=== PATIENT | male | born 1995 | race African-American/Black ===

== ENCOUNTER 2017-02-01 12:30 | Emergency (ER) | payer SELFPAY ==
[~2017-02-01] VITALS: Ht 172.7 cm; Wt 70.8 kg
[2017-02-01 12:58] LABS: BILIRUBIN,URINE NEGATIVE (NEG); GLUCOSE,URINE NEGATIVE (NEG); NITRITE,URINE NEGATIVE (NEG); PROTEIN,URINE NEGATIVE (NEG-TRACE)
[2017-02-01 13:07] LABS: SQUAMOUS EPITHELIAL CELL,UR FEW /LPF
[2017-02-01 13:08] LABS: BACTERIA,URINE 0 /HPF (0-FEW); RBC,URINE OCC /HPF (0-2)
[2017-02-01] MEDS ORDERED: IV NORMAL SALINE 1000ML BAG 1,000 ML IV SCH (13:10)
[2017-02-01 13:27] LABS: BASO # 0.1 x10^3/uL (0.0-0.2); BASO % 0 % (0-3); EOS % 0 % (0-3); HEMATOCRIT 48.7 % (39.0-53.0); LYMPH # 1.3 x10^3/uL (1.0-4.8); LYMPH % 7 % (24-48); MEAN CORPUSCULAR HEMOGLOBIN 28 pg (25-35); MEAN CORPUSCULAR HGB CONC 33 g/dL (31-37); MEAN CORPUSCULAR VOLUME 85 fL (79-100); MONO % 3 % (0-9); NEUT % 90 % (31-73); PLATELET COUNT 239 x10^3/uL (140-400); RED BLOOD COUNT 5.77 x10^6/uL (4.30-5.70); RED CELL DISTRIBUTION WIDTH 14.8 % (11.5-14.5); WHITE BLOOD COUNT 19.5 x10^3/uL (4.0-11.0)
--- NOTE | 2017-02-01 13:37 | ED.ADGEN ---
Past Medical History Past Medical History: No Pertinent History Past Surgical History: No Surgical History Alcohol Use: Occasionally Drug Use: Marijuana Adult General Chief Complaint Chief Complaint: NAUSEA/VOMITING/DIARRHA HPI HPI Patient is a 21 year old man, with no significant past no history, who presents the emergency department with a complaint of nausea, vomiting, and diarrhea associated with fevers and chills that began around 11:30 last night.. Patient states that he began experiencing sharp and cramping abdominal pain all over his abdomen, has had 9 episodes of emesis, states initially food and fluid , states that he did have "red stuff", in the last 2 episodes, denies any history of hematemesis, any injuries, any similar symptoms previously. Patient states that he possibly had a sick contact in a cousin he was having vomiting yesterday. He states that he was drinking alcohol last night before this began, states "little bit". Denies any recent travel, any history of surgery, any rashes, swelling extremities, chest pain, shortness breath or other complaints. Review of Systems Review of Systems Constitutional: Denies fever or chills. [] Eyes: Denies change in visual acuity. [] HENT: Denies nasal congestion or sore throat. [] Respiratory: Denies cough or shortness of breath. [] Cardiovascular: Denies chest pain or edema. [] GI: Cramping, sharp abdominal pain throughout the abdomen, associated nausea, vomiting, diarrhea. No bloody stools, possible blood in one episode of emesis. : Denies dysuria. [] Musculoskeletal: Denies back pain or joint pain. [] Integument: Denies rash. [] Neurologic: Denies headache, focal weakness or sensory changes. [] Endocrine: Denies polyuria or polydipsia. [] Lymphatic: Denies swollen glands. [] Psychiatric: Denies depression or anxiety. [] Current Medications Current Medications Current Medications Medications (Trade) Dose Ordered Sig/Jose Miguel Start Time Stop Time Status Last Admin Dose Admin Haloperidol Lactate (Haldol) 5 mg 1X ONCE 02/01/17 15:30 02/01/17 15:31 DC 02/01/17 15:33 5 MG Info (Do NOT chart on this entry -- for MONITORING) 1 each PRN DAILY PRN 02/01/17 14:15 02/03/17 14:14 Iohexol (Omnipaque 300 Mg/ml) 75 ml 1X ONCE 02/01/17 14:15 02/01/17 14:16 DC 02/01/17 14:16 75 ML Multi-Ingredient Mouthwash/Gargle (Gi Cocktail Single Dose) 15 ml 1X ONCE 02/01/17 15:30 02/01/17 15:31 DC 02/01/17 15:33 15 ML Sodium Chloride 1,000 ml @ 1,000 mls/hr Q1H 02/01/17 13:10 02/01/17 14:09 DC 02/01/17 13:45 1,000 MLS/HR Allergies Allergies Allergies Coded Allergies Type Severity Reaction Last Updated Verified No Known Drug Allergies 02/01/17 No Physical Exam Physical Exam Constitutional: Well developed, well nourished, no acute distress, non-toxic appearance. [] HENT: Normocephalic, atraumatic, bilateral external ears normal, oropharynx moist, no oral exudates, nose normal. [] Eyes: PERRLA, EOMI, conjunctiva normal, no discharge. [] Neck: Normal range of motion, no tenderness, supple, no stridor. [] Cardiovascular:Heart rate regular rhythm, no murmur, S1, S2, rubs or gallops. [] Lungs & Thorax: Bilateral breath sounds clear to auscultation, no wheezing, rhonchi, rales. No chest wall tenderness or crepitus. [] Abdomen: Bowel sounds normal, soft, tenderness palpation in the epigastric and periumbilical region, mild voluntary guarding, no rebound or rigidity, no masses , no pulsatile masses. [] Skin: Warm, dry, no erythema, no rash. [] Back: No tenderness, no CVA tenderness. [] Extremities: No tenderness, no cyanosis, no clubbing, ROM intact, no edema. Negative Homans sign. [] Neurologic: Alert and oriented X 3, normal motor function, normal sensory function, no focal deficits noted. [] Psychologic: Affect normal, judgement normal, mood normal. [] Current Patient Data Vital Signs Vital Signs Date Time Temp Pulse Resp B/P (MAP) Pulse Ox O2 Delivery O2 Flow Rate FiO2 02/01/17 16:37 81 17 147/71 (96) 99 Room Air 02/01/17 12:30 97.8 97.8 Lab Values Laboratory Tests Test 02/01/17 12:38 02/01/17 13:20 Urine Collection Type Void Urine Color Yellow Urine Clarity Clear Urine pH 6.0 Urine Specific [place] 1.025 Urine Protein Negative mg/dL (NEG-TRACE) Urine Glucose (UA) Negative mg/dL (NEG) Urine Ketones (Stick) >=80 mg/dL (NEG) Urine Blood Negative (NEG) Urine Nitrite Negative (NEG) Urine Bilirubin Negative (NEG) Urine Urobilinogen Dipstick 1.0 mg/dL (0.2 mg/dL) Urine Leukocyte Esterase Negative (NEG) Urine RBC Occ /HPF (0-2) Urine WBC 1-4 /HPF (0-4) Urine Squamous Epithelial Cells Few /LPF Urine Bacteria 0 /HPF (0-FEW) Urine Mucus Marked /LPF Urine Opiates Screen Neg (NEG) Urine Methadone Screen Neg (NEG) Urine Barbiturates Neg (NEG) Urine Phencyclidine Screen Neg (NEG) Urine Amphetamine/Methamphetamine Neg (NEG) Urine Benzodiazepines Screen Neg (NEG) Urine Cocaine Screen Neg (NEG) Urine Cannabinoids Screen Pos (NEG) Urine Ethyl Alcohol Neg (NEG) White Blood Count 19.5 x10^3/uL (4.0-11.0) H Red Blood Count 5.77 x10^6/uL (4.30-5.70) H Hemoglobin 16.0 g/dL (13.0-17.5) Hematocrit 48.7 % (39.0-53.0) Mean Corpuscular Volume 85 fL (79-100) Mean Corpuscular Hemoglobin 28 pg (25-35) Mean Corpuscular Hemoglobin Concent 33 g/dL (31-37) Red Cell Distribution Width 14.8 % (11.5-14.5) H Platelet Count 239 x10^3/uL (140-400) Neutrophils (%) (Auto) 90 % (31-73) H Lymphocytes (%) (Auto) 7 % (24-48) L Monocytes (%) (Auto) 3 % (0-9) Eosinophils (%) (Auto) 0 % (0-3) Basophils (%) (Auto) 0 % (0-3) Neutrophils # (Auto) 17.5 x10^3uL (1.8-7.7) H Lymphocytes # (Auto) 1.3 x10^3/uL (1.0-4.8) Monocytes # (Auto) 0.6 x10^3/uL (0.0-1.1) Eosinophils # (Auto) 0.0 x10^3/uL (0.0-0.7) Basophils # (Auto) 0.1 x10^3/uL (0.0-0.2) Segmented Neutrophils % 85 % (35-66) H Band Neutrophils % 2 % (0-9) Lymphocytes % 8 % (24-48) L Monocytes % 5 % (0-10) Platelet Estimate Adequate (ADEQUATE) Sodium Level 140 mmol/L (136-145) Potassium Level 4.3 mmol/L (3.5-5.1) Chloride Level 100 mmol/L (98-107) Carbon Dioxide Level 25 mmol/L (21-32) Anion Gap 15 (6-14) H Blood Urea Nitrogen 16 mg/dL (8-26) Creatinine 1.3 mg/dL (0.7-1.3) Estimated GFR (Cockcroft-Gault) 84.3 BUN/Creatinine Ratio 12 (6-20) Glucose Level 95 mg/dL (70-99) Calcium Level 9.4 mg/dL (8.5-10.1) Total Bilirubin 0.7 mg/dL (0.2-1.0) Aspartate Amino Transferase (AST) 45 U/L (15-37) H Alanine Aminotransferase (ALT) 36 U/L (16-63) Alkaline Phosphatase 64 U/L (46-116) Total Protein 8.6 g/dL (6.4-8.2) H Albumin 4.7 g/dL (3.4-5.0) Albumin/Globulin Ratio 1.2 (1.0-1.7) Lipase 58 U/L (73-393) L Laboratory Tests 02/01/17 13:20 Laboratory Tests 02/01/17 13:20 EKG EKG ECG: Rhythm strip: Heart rate 96 bpm, sinus rhythm, no ectopy. As interpreted by me. [] Radiology/Procedures Radiology/Procedures [][facility] [address] [place] [address] IMAGING REPORT Signed PATIENT: TERENCE FORD ACCOUNT: [id number] : 1995 LOCATION: ER AGE: 21 SEX: M EXAM STATUS: REG ER ORD. PHYSICIAN: JORGE DODGE DO REASON: abd pain/n/v/d PROCEDURE: CT ABD PELV W/ IV CONTRST ONLY CT scan of the abdomen and pelvis with contrast 02/01/2017 Clinical history: Abdominal pain with nausea, vomiting and diarrhea since yesterday. Technique: After the intravenous administration of 75 cc of Omnipaque 300, contiguous, 5 mm axial sections were obtained through the abdomen and pelvis. One or more of the following individualized dose reduction techniques were utilized for this study: 1. Automated exposure control. 2. Adjustment of the mA and/or kV according to patient size. 3. Use of iterative reconstruction technique. Findings: Images through the lung bases are within normal limits. The liver, spleen, pancreas, adrenal glands and kidneys are within normal limits. The abdominal aorta tapers normally. The gallbladder is contracted. No free fluid or free air is abdomen. There is no evidence of bowel obstruction. The appendix is well visualized and is within normal limits. Images through the pelvis demonstrate the urinary bladder distended with urine. Calcifications are seen within the pelvis consistent with phleboliths. No free fluid is seen. Minimal S shaped curvature of the thoracolumbar spine is seen. Impression: No acute abnormality is seen. DICTATED and SIGNED BY: SRINI ROLLE MD DATE: 02/01/17 1432 CC: JORGE DODGE DO; NON,STAFF ~ Course & Med Decision Making Course & Med Decision Making Pertinent Labs and Imaging studies reviewed. (See chart for details) Patient with potential positive sick contacts as stated. Patient with vital signs within normal limits, agreeable to receiving IV fluids, pain medication, antiemetics in the ED, with imaging of the abdomen from elucidate his symptoms, with a leukocytosis of 19.5. No bandemia, patient is afebrile without antipyretics. Imaging of the abdomen does not reveal any concerning findings. On reevaluation, patient is feeling much better, has had no further emesis or episodes of diarrhea since arrival in the ED. Noted to be positive for marijuana in his urine, he does admit to daily marijuana use, advised this could be contributing to his symptoms. Patient voices understanding, states he is rated go home at this time, given prescription for Bentyl, Zofran, clear and detailed return instructions, precautions, dietary instructions, with which he voiced understanding and agreement. Patient discharged home with plan as above. Lisyon Disclaimer Becki Disclaimer This electronic medical record was generated, in whole or in part, using a voice recognition dictation system. Departure Impression: Primary Impression: Nausea & vomiting Additional Impression: Abdominal pain Disposition: HOME, SELF-CARE Condition: IMPROVED Scripts Dicyclomine Hcl (BENTYL) 10 Mg Capsule 10 MG PO QID Y for abdominal pain, #12 TAB Prov: JORGE DODGE DO 02/01/17 Ondansetron Hcl (ZOFRAN) 4 Mg Tablet 1 TAB PO Q8HRS Y for NAUSEA, #12 TAB Prov: JORGE DODGE DO 02/01/17 Problem Qualifiers JORGE DODGE DO Feb 01, 2017 13:37
[2017-02-01 13:38] LABS: CALCIUM 9.4 mg/dL (8.5-10.1); CREATININE 1.3 mg/dL (0.7-1.3); GFR 84.3; POTASSIUM 4.3 mmol/L (3.5-5.1)
[2017-02-01 13:45] LABS: ALBUMIN 4.7 g/dL (3.4-5.0); ALBUMIN/GLOBULIN RATIO 1.2 (1.0-1.7); TOTAL BILIRUBIN 0.7 mg/dL (0.2-1.0); TOTAL PROTEIN 8.6 g/dL (6.4-8.2)
[2017-02-01 14:12] LABS: PLT ESTIMATE ADEQUATE (ADEQUATE)
[2017-02-01] MEDS ORDERED: CONTRAST GIVEN MC PRN (14:15)
[2017-02-01] MEDS ORDERED: IOHEXOL 300 MG/ML 75 ML VIAL IV ONE (14:15)
--- NOTE | 2017-02-01 14:38 | RAD ---
CT scan of the abdomen and pelvis with contrast 02/01/2017 Clinical history: Abdominal pain with nausea, vomiting and diarrhea since yesterday. Technique: After the intravenous administration of 75 cc of Omnipaque 300, contiguous, 5 mm axial sections were obtained through the abdomen and pelvis. One or more of the following individualized dose reduction techniques were utilized for this study: 1. Automated exposure control. 2. Adjustment of the mA and/or kV according to patient size. 3. Use of iterative reconstruction technique. Findings: Images through the lung bases are within normal limits. The liver, spleen, pancreas, adrenal glands and kidneys are within normal limits. The abdominal aorta tapers normally. The gallbladder is contracted. No free fluid or free air is abdomen. There is no evidence of bowel obstruction. The appendix is well visualized and is within normal limits. Images through the pelvis demonstrate the urinary bladder distended with urine. Calcifications are seen within the pelvis consistent with phleboliths. No free fluid is seen. Minimal S shaped curvature of the thoracolumbar spine is seen. Impression: No acute abnormality is seen.
[2017-02-01 14:53] LABS: BARBITURATES NEG (NEG); BENZODIAZEPINES NEG (NEG); CANNABINOIDS POS (NEG); COCAINE NEG (NEG); METHADONE NEG (NEG); OPIATES NEG (NEG); PHENCYCLIDINE NEG (NEG)
[2017-02-01] MEDS ORDERED: HALOPERIDOL LACTATE 5 MG/ML VIAL. IVP ONE (15:30)
[2017-02-01] MEDS ORDERED: LIDO:MAALOX:DONNATAL 1:1:1 15 ML SINGLE DOSE SWSW ONE (15:30)
[2017-02-01 16:37] VITALS: BP 147/71
[2017-02-01] MEDS ORDERED: DICY10CA53 PO (16:53)
[2017-02-01] MEDS ORDERED: ONDA4TAB7 PO (16:53)
== END 2017-02-01 16:58 | disposition home or self-care (01) ==
LOC: ER 12:30
DX: R10.13 Epigastric pain (principal); R10.33 Periumbilical pain; R11.2 Nausea with vomiting, unspecified; R19.7 Diarrhea, unspecified; R50.9 Fever, unspecified
CPT/HCPCS: 36415; 74177; 80053; 80307; 81001; 83690; 85007; 85025; 96361; 96374; 99285; J1630; J7030; Q9967; G0479

== ENCOUNTER 2017-06-12 13:48 | Emergency (ER) | payer SELFPAY ==
[~2017-06-12] VITALS: Ht 172.7 cm; Wt 70.8 kg
[~2017-06-12 13:48] MED LIST: DICY10CA53 PO; ONDA4TAB7 PO
[2017-06-12] MEDS ORDERED: IV NORMAL SALINE 1000ML BAG 1,000 ML IV SCH (14:39)
[2017-06-12] MEDS ORDERED: FAMOTIDINE 20 MG/2 ML VIAL IVP ONE (14:45)
[2017-06-12] MEDS ORDERED: LIDO:MAALOX:DONNATAL 1:1:1 15 ML SINGLE DOSE SWSW ONE (14:45)
[2017-06-12] MEDS ORDERED: fentaNYL PF VIAL 100 MCG/2 ML VIAL IV PRN (14:45)
[2017-06-12] MEDS ORDERED: ONDANSETRON PF 4 MG/2 ML VIAL. IV ONE (14:45)
--- NOTE | 2017-06-12 15:11 | PHYS DOC ---
Past Medical History Past Medical History: No Pertinent History Past Surgical History: No Surgical History Alcohol Use: Occasionally Drug Use: Marijuana Adult General Chief Complaint Chief Complaint: NAUSEA/VOMITING/DIARRHA HPI HPI Patient is a 21 year old male who presents with complaint of nausea, vomiting, and abdominal pain. Patient states that his symptoms started 3 days ago though he does state that he has had symptoms off and on over the past 3 months. Patient states that the pain is in the middle of his abdomen and describes it as cramping. Patient rates pain as 9 out of 10 on my evaluation. Patient has had several episodes of nausea and vomiting as well as loose stools. Patient states she's had subjective fevers at home. Patient has not taken any medications to help with his symptoms. Patient denies any known health problems. Review of Systems Review of Systems Constitutional: Subjective fever[] Eyes: Denies change in visual acuity, redness, or eye pain [] HENT: Denies nasal congestion or sore throat [] Respiratory: Denies cough or shortness of breath [] Cardiovascular: Denies chest pain or edema[] GI: Abdominal pain, nausea, vomiting, diarrhea[] : Denies dysuria or hematuria [] Musculoskeletal: Denies back pain or joint pain [] Integument: Denies rash or skin lesions [] Neurologic: Denies headache, focal weakness or sensory changes [] All other systems were reviewed and found to be within normal limits, except as documented in this note. Current Medications Current Medications Current Medications Medications (Trade) Dose Ordered Sig/Jose Miguel Start Time Stop Time Status Last Admin Dose Admin Famotidine (Pepcid Vial) 20 mg 1X ONCE 06/12/17 14:45 06/12/17 14:46 DC 06/12/17 15:03 20 MG Fentanyl Citrate (Fentanyl 2ml Vial) 50 mcg PRN Q15MIN PRN 06/12/17 14:45 06/13/17 14:44 06/12/17 15:04 50 MCG Multi-Ingredient Mouthwash/Gargle (Gi Cocktail Single Dose) 15 ml 1X ONCE 06/12/17 14:45 06/12/17 14:46 DC 06/12/17 15:02 15 ML Ondansetron HCl (Zofran) 4 mg 1X ONCE 06/12/17 14:45 06/12/17 14:46 DC 06/12/17 15:03 4 MG Sodium Chloride 1,000 ml @ 1,000 mls/hr Q1H 06/12/17 14:39 06/12/17 15:38 DC 06/12/17 15:03 1,000 MLS/HR Allergies Allergies Allergies Coded Allergies Type Severity Reaction Last Updated Verified No Known Drug Allergies 02/01/17 No Physical Exam Physical Exam Constitutional: Alert, afebrile, appears mild/moderate discomfort. [] HENT: Normocephalic, atraumatic, bilateral external ears normal, oropharynx moist, no oral exudates, nose normal. [] Eyes: PERRLA, EOMI, conjunctiva normal, no discharge. [] Neck: Normal range of motion, no tenderness, supple, no stridor. [] Cardiovascular:Heart rate regular rhythm, no murmur [] Lungs & Thorax: Bilateral breath sounds clear to auscultation [] Abdomen: Bowel sounds normal, soft, no tenderness to palpation with no guarding or rebound tenderness, no masses, no pulsatile masses. [] Skin: Warm, dry, no erythema, no rash. [] Back: No tenderness, no CVA tenderness. [] Extremities: No tenderness, no cyanosis, no clubbing, ROM intact, no edema. [] Neurologic: Alert and oriented X 3, normal motor function, normal sensory function, no focal deficits noted. [] Current Patient Data Vital Signs Vital Signs Date Time Temp Pulse Resp B/P (MAP) Pulse Ox O2 Delivery O2 Flow Rate FiO2 06/12/17 14:20 97.5 76 18 162/92 (115) 99 Room Air 97.5 Lab Values Laboratory Tests Test 06/12/17 14:55 06/12/17 16:30 White Blood Count 8.7 x10^3/uL (4.0-11.0) Red Blood Count 5.70 x10^6/uL (4.30-5.70) Hemoglobin 15.5 g/dL (13.0-17.5) Hematocrit 47.5 % (39.0-53.0) Mean Corpuscular Volume 83 fL (79-100) Mean Corpuscular Hemoglobin 27 pg (25-35) Mean Corpuscular Hemoglobin Concent 33 g/dL (31-37) Red Cell Distribution Width 14.3 % (11.5-14.5) Platelet Count 262 x10^3/uL (140-400) Neutrophils (%) (Auto) 68 % (31-73) Lymphocytes (%) (Auto) 25 % (24-48) Monocytes (%) (Auto) 6 % (0-9) Eosinophils (%) (Auto) 1 % (0-3) Basophils (%) (Auto) 1 % (0-3) Neutrophils # (Auto) 5.9 x10^3uL (1.8-7.7) Lymphocytes # (Auto) 2.2 x10^3/uL (1.0-4.8) Monocytes # (Auto) 0.5 x10^3/uL (0.0-1.1) Eosinophils # (Auto) 0.1 x10^3/uL (0.0-0.7) Basophils # (Auto) 0.1 x10^3/uL (0.0-0.2) Sodium Level 140 mmol/L (136-145) Potassium Level 3.8 mmol/L (3.5-5.1) Chloride Level 102 mmol/L (98-107) Carbon Dioxide Level 25 mmol/L (21-32) Anion Gap 13 (6-14) Blood Urea Nitrogen 10 mg/dL (8-26) Creatinine 1.1 mg/dL (0.7-1.3) Estimated GFR (Cockcroft-Gault) 102.2 BUN/Creatinine Ratio 9 (6-20) Glucose Level 93 mg/dL (70-99) Calcium Level 9.9 mg/dL (8.5-10.1) Total Bilirubin 0.8 mg/dL (0.2-1.0) Aspartate Amino Transferase (AST) 20 U/L (15-37) Alanine Aminotransferase (ALT) 17 U/L (16-63) Alkaline Phosphatase 67 U/L (46-116) Total Protein 7.9 g/dL (6.4-8.2) Albumin 4.5 g/dL (3.4-5.0) Albumin/Globulin Ratio 1.3 (1.0-1.7) Lipase 64 U/L (73-393) L Urine Color Yellow Urine Clarity Clear Urine pH 8.5 Urine Specific [place] 1.020 Urine Protein Negative mg/dL (NEG-TRACE) Urine Glucose (UA) Negative mg/dL (NEG) Urine Ketones (Stick) 40 mg/dL (NEG) Urine Blood Negative (NEG) Urine Nitrite Negative (NEG) Urine Bilirubin Negative (NEG) Urine Urobilinogen Dipstick 1.0 mg/dL (0.2 mg/dL) Urine Leukocyte Esterase Negative (NEG) Urine RBC 0 /HPF (0-2) Urine WBC Occ /HPF (0-4) Urine Squamous Epithelial Cells Occ /LPF Urine Bacteria 0 /HPF (0-FEW) Urine Mucus Slight /LPF Laboratory Tests 06/12/17 14:55 Laboratory Tests 06/12/17 14:55 EKG EKG Not performed[] Radiology/Procedures Radiology/Procedures Not performed[] Course & Med Decision Making Course & Med Decision Making Pertinent Labs and Imaging studies reviewed. (See chart for details) Patient is given IV fluids, Pepcid, Zofran, and fentanyl in the emergency department. On reevaluation, patient states his symptoms have improved at this time. Lab work is unremarkable. The patient's symptoms do not appear to be acutely life-threatening or surgical. The patient will be discharged with prescriptions for Bentyl, Pepcid, and Zofran for outpatient treatment. Patient was referred to Dr. Stoll given the chronicity of symptoms and recommended that he schedule appointment in the next 1-2 weeks for follow-up. Advised return emergency department for any worsening symptoms. Patient voiced understanding and in agreement with treatment plan. Dragon Disclaimer Dragon Disclaimer This electronic medical record was generated, in whole or in part, using a voice recognition dictation system. Departure Departure Impression: Primary Impression: Abdominal pain Additional Impressions: Nausea & vomiting Diarrhea Disposition: 01 HOME, SELF-CARE Condition: IMPROVED Referrals: NON,STAFF (PCP) Patient Instructions: Abdominal Pain (Nonspecific), Diarrhea, Nausea and Vomiting Additional Instructions: Follow-up with Dr. Stoll of gastroenterology in 1-2 weeks for follow-up of your recurrent abdominal symptoms. Return to the emergency department for any worsening symptoms. Scripts Dicyclomine Hcl (BENTYL) 10 Mg Capsule 1 CAP PO TID, #90 CAP 0 Refills Prov: ROLA SANTACRUZ MD 06/12/17 Famotidine (PEPCID) 20 Mg Tablet 20 MG PO BID, #30 TAB Prov: ROLA SANTACRUZ MD 06/12/17 Ondansetron (ZOFRAN ODT) 4 Mg Tab.rapdis 1 TAB SL Q8HRS Y for NAUSEA/VOMITING, #15 TAB Prov: ROLA SANTACRUZ MD 06/12/17 Problem Qualifiers Primary Impression: Abdominal pain Abdominal location: periumbilical Qualified Codes: R10.33 - Periumbilical pain Additional Impressions: Nausea & vomiting Vomiting type: unspecified Vomiting Intractability: unspecified Qualified Codes: R11.2 - Nausea with vomiting, unspecified Diarrhea Diarrhea type: presumed infectious Qualified Codes: A09 - Infectious gastroenteritis and colitis, unspecified ROLA SANTACRUZ MD Jun 12, 2017 15:11
[2017-06-12 15:12] LABS: BASO # 0.1 x10^3/uL (0.0-0.2); BASO % 1 % (0-3); EOS % 1 % (0-3); HEMATOCRIT 47.5 % (39.0-53.0); HEMOGLOBIN 15.5 g/dL (13.0-17.5); LYMPH # 2.2 x10^3/uL (1.0-4.8); LYMPH % 25 % (24-48); MEAN CORPUSCULAR HEMOGLOBIN 27 pg (25-35); MEAN CORPUSCULAR HGB CONC 33 g/dL (31-37); MEAN CORPUSCULAR VOLUME 83 fL (79-100); MONO % 6 % (0-9); NEUT % 68 % (31-73); PLATELET COUNT 262 x10^3/uL (140-400); RED CELL DISTRIBUTION WIDTH 14.3 % (11.5-14.5); WHITE BLOOD COUNT 8.7 x10^3/uL (4.0-11.0)
[2017-06-12 15:18] LABS: CALCIUM 9.9 mg/dL (8.5-10.1); CREATININE 1.1 mg/dL (0.7-1.3); GFR 102.2; POTASSIUM 3.8 mmol/L (3.5-5.1)
[2017-06-12 15:24] LABS: ALBUMIN 4.5 g/dL (3.4-5.0); ALBUMIN/GLOBULIN RATIO 1.3 (1.0-1.7); TOTAL BILIRUBIN 0.8 mg/dL (0.2-1.0); TOTAL PROTEIN 7.9 g/dL (6.4-8.2)
[2017-06-12 16:37] LABS: BILIRUBIN,URINE NEGATIVE (NEG); GLUCOSE,URINE NEGATIVE (NEG); NITRITE,URINE NEGATIVE (NEG); PH,URINE 8.5; PROTEIN,URINE NEGATIVE (NEG-TRACE)
[2017-06-12 16:55] LABS: BACTERIA,URINE 0 /HPF (0-FEW); RBC,URINE 0 /HPF (0-2); SQUAMOUS EPITHELIAL CELL,UR OCC /LPF; WBC,URINE OCC /HPF (0-4)
[2017-06-12 18:00] VITALS: BP 121/80
[2017-06-12] MEDS ORDERED: FAMO-63 PO (18:01)
[2017-06-12] MEDS ORDERED: ONDA4TAB10 SL (18:01)
[2017-06-12] MEDS ORDERED: DICY10CA53 PO (18:01)
== END 2017-06-12 18:17 | disposition home or self-care (01) ==
LOC: ER 13:48
DX: A09 Infectious gastroenteritis and colitis, unspecified (principal); F12.10 Cannabis abuse, uncomplicated
CPT/HCPCS: 36415; 80053; 81001; 83690; 85025; 96361; 96374; 96375; 99284; J2405; J3010; J7030; S0028

== ENCOUNTER 2017-06-18 11:23 | Emergency (ER) | payer SELFPAY ==
[2017-06-18] MEDS: IV NORMAL SALINE 1000ML BAG 1,000 ML IV (12:13)
[2017-06-18] MEDS: ONDANSETRON PF 4 MG/2 ML VIAL. IV (12:14)
[2017-06-18] MEDS: fentaNYL PF VIAL 100 MCG/2 ML VIAL IV (12:14)
[2017-06-18 12:35] LABS: BASO % 0 % (0-3); EOS % 0 % (0-3); HEMATOCRIT 45.5 % (39.0-53.0); HEMOGLOBIN 14.9 g/dL (13.0-17.5); LYMPH # 0.4 x10^3/uL (1.0-4.8); LYMPH % 4 % (24-48); MEAN CORPUSCULAR HEMOGLOBIN 27 pg (25-35); MEAN CORPUSCULAR HGB CONC 33 g/dL (31-37); MEAN CORPUSCULAR VOLUME 84 fL (79-100); MONO % 6 % (0-9); NEUT % 91 % (31-73); PLATELET COUNT 207 x10^3/uL (140-400); RED BLOOD COUNT 5.44 x10^6/uL (4.30-5.70)
[2017-06-18 12:37] LABS: ADD MAN DIFF? YES
[2017-06-18 12:55] LABS: ANION GAP 13 (6-14); BLOOD UREA NITROGEN 17 mg/dL (8-26); BUN/CREATININE RATIO 14 (6-20); CALCIUM 8.5 mg/dL (8.5-10.1); CARBON DIOXIDE 24 mmol/L (21-32); CHLORIDE 103 mmol/L (98-107); CREATININE 1.2 mg/dL (0.7-1.3); GFR 92.5; GLUCOSE 115 mg/dL (70-99); POTASSIUM 4.4 mmol/L (3.5-5.1); SODIUM 140 mmol/L (136-145)
[2017-06-18 13:00] LABS: ALBUMIN/GLOBULIN RATIO 1.1 (1.0-1.7); ALK PHOS 64 U/L (46-116); ALT (SGPT) 19 U/L (16-63); AST (SGOT) 18 U/L (15-37); TOTAL BILIRUBIN 0.4 mg/dL (0.2-1.0); TOTAL PROTEIN 7.8 g/dL (6.4-8.2)
[2017-06-18 13:05] LABS: OBC FLU VALID
[2017-06-18 13:43] LABS: % BASOS 1 % (0-3); PLT ESTIMATE ADEQUATE (ADEQUATE)
[2017-06-18] MEDS ORDERED: CONTRAST GIVEN MC (13:45)
[2017-06-18] MEDS: IOHEXOL 300 MG/ML 100ML VIAL. IV (13:51)
== END 2017-06-18 14:40 | disposition home or self-care (01) ==
LOC: ER 11:23
DX: K52.9 Noninfective gastroenteritis and colitis, unspecified (principal); F12.10 Cannabis abuse, uncomplicated
CPT/HCPCS: 36415; 74177; 80053; 83690; 85007; 85025; 87804; 87804-59; 96361; 96374; 96375; 99285-25; J2405; J3010; J7030; Q9967

== ENCOUNTER 2017-11-14 19:41 | Emergency (ER) | payer SELFPAY ==
[2017-11-14] MEDS: ONDANSETRON PF 4 MG/2 ML VIAL. IV (20:23)
[2017-11-14] MEDS: IV NORMAL SALINE 1000ML BAG 1,000 ML IV (20:23)
== END 2017-11-14 22:15 | disposition home or self-care (01) ==
LOC: ER 22:15
DX: R11.2 Nausea with vomiting, unspecified (principal); F12.10 Cannabis abuse, uncomplicated
CPT/HCPCS: 96361; 96374; 99284; J2405; J7030

== ENCOUNTER 2018-01-06 22:52 | Emergency (ER) | payer SELFPAY ==
[2018-01-06] MEDS ORDERED: DEXTROSE 50% 25 GM / 50ML DISP.SYRIN. IV (23:00)
[2018-01-06] MEDS: DEXTROSE 50% 25 GM / 50ML DISP.SYRIN. IV (23:08)
[2018-01-06] MEDS: IV NORMAL SALINE 1000ML BAG 1,000 ML IV (23:09)
[2018-01-06 23:31] LABS: ADD MAN DIFF? NO
[2018-01-06 23:34] LABS: BASO % 1 % (0-3); EOS # 0.1 x10^3/uL (0.0-0.7); EOS % 1 % (0-3); HEMATOCRIT 40.3 % (39.0-53.0); HEMOGLOBIN 13.6 g/dL (13.0-17.5); LYMPH # 1.2 x10^3/uL (1.0-4.8); LYMPH % 23 % (24-48); MEAN CORPUSCULAR HEMOGLOBIN 28 pg (25-35); MEAN CORPUSCULAR HGB CONC 34 g/dL (31-37); MEAN CORPUSCULAR VOLUME 84 fL (79-100); MONO # 0.3 x10^3/uL (0.0-1.1); MONO % 5 % (0-9); NEUT # 3.5 x10^3uL (1.8-7.7); NEUT % 70 % (31-73); PLATELET COUNT 210 x10^3/uL (140-400); RED BLOOD COUNT 4.82 x10^6/uL (4.30-5.70); RED CELL DISTRIBUTION WIDTH 14.6 % (11.5-14.5); WHITE BLOOD COUNT 5.1 x10^3/uL (4.0-11.0)
[2018-01-06 23:46] LABS: ANION GAP 13 (6-14); BLOOD UREA NITROGEN 12 mg/dL (8-26); BUN/CREATININE RATIO 10 (6-20); CALCIUM 8.1 mg/dL (8.5-10.1); CARBON DIOXIDE 22 mmol/L (21-32); CHLORIDE 101 mmol/L (98-107); CREATININE 1.2 mg/dL (0.7-1.3); GFR 91.6; GLUCOSE 261 mg/dL (70-99); POTASSIUM 3.5 mmol/L (3.5-5.1); SODIUM 136 mmol/L (136-145)
[2018-01-06 23:47] LABS: ETHANOL 92 mg/dL (0-10)
[2018-01-06 23:52] LABS: ALBUMIN 3.6 g/dL (3.4-5.0); ALBUMIN/GLOBULIN RATIO 1.2 (1.0-1.7); ALK PHOS 56 U/L (46-116); ALT (SGPT) 14 U/L (16-63); AST (SGOT) 13 U/L (15-37); TOTAL BILIRUBIN 0.5 mg/dL (0.2-1.0); TOTAL PROTEIN 6.5 g/dL (6.4-8.2)
== END 2018-01-07 03:00 | disposition home or self-care (01) ==
LOC: ER 22:52
DX: F10.129 Alcohol abuse with intoxication, unspecified (principal); R06.4 Hyperventilation; F41.9 Anxiety disorder, unspecified; F17.210 Nicotine dependence, cigarettes, uncomplicated
CPT/HCPCS: 36415; 80053; 85025; 96374; 96375; 99284; G0480; J2060; J7030; J7042

== ENCOUNTER 2018-02-08 19:01 | Emergency (ER) | payer SELFPAY ==
[~2018-02-08] VITALS: Ht 172.7 cm; Wt 61.2 kg
[~2018-02-08 19:01] MED LIST changes: +FAMO-63 PO; +ONDA4TAB10 SL
[2018-02-08] MEDS ORDERED: DICYCLOMINE HCL 10 MG CAPSULE PO ONE (20:15)
[2018-02-08] MEDS ORDERED: IV NORMAL SALINE 1000ML BAG 1,000 ML IV ONE (20:15)
[2018-02-08] MEDS ORDERED: ONDANSETRON PF 4 MG/2 ML VIAL. IV ONE (20:15)
[2018-02-08] MEDS ORDERED: PANTOPRAZOLE IV PUSH 40 MG VIAL. IVP ONE (20:15)
[2018-02-08 20:24] LABS: BILIRUBIN,URINE NEGATIVE (NEG); CLARITY,URINE CLEAR; COLOR,URINE YELLOW; NITRITE,URINE NEGATIVE (NEG); PH,URINE 6.5; PROTEIN,URINE 30 mg/dL (NEG-TRACE); UROBILINOGEN,URINE 0.2 mg/dL (0.2 mg/dL)
--- NOTE | 2018-02-08 20:25 | PHYS DOC ---
Past Medical History Past Medical History: No Pertinent History Past Surgical History: No Surgical History Alcohol Use: Occasionally Drug Use: Marijuana Adult General Chief Complaint Chief Complaint: ABDOMINAL PAIN HPI HPI Patient is a 22 year old female with nausea with the medical history who presents today complaining of 10 out of 10 generalized abdominal pain with nausea and vomiting. Patient states symptoms began 2 weeks ago after he had [employer]. Patient states symptoms had subsided. He states he had [employer] yesterday again, he states symptoms began. Patient denies taking anything for his symptoms. Denies any fever. Denies any hematemesis or melena. He is actively vomiting on arrival to the ED. He states he has been seen in the ED multiple times for similar symptoms. Review of Systems Review of Systems Constitutional: Denies fever or chills [] Eyes: Denies change in visual acuity, redness, or eye pain [] HENT: Denies nasal congestion or sore throat [] Respiratory: Denies cough or shortness of breath [] Cardiovascular: No additional information not addressed in HPI [] GI: Reports generalized abdominal pain, nausea vomiting and diarrhea : Denies dysuria or hematuria [] Musculoskeletal: Denies back pain or joint pain [] Integument: Denies rash or skin lesions [] Neurologic: Denies headache, focal weakness or sensory changes [] All other systems were reviewed and found to be within normal limits, except as documented in this note. Current Medications Current Medications Current Medications Medications (Trade) Dose Ordered Sig/Jose Miguel Start Time Stop Time Status Last Admin Dose Admin Dicyclomine HCl (Bentyl) 20 mg 1X ONCE 02/08/18 20:15 02/08/18 20:16 DC 02/08/18 22:16 20 MG Haloperidol Lactate (Haldol Inj) 5 mg 1X ONCE 02/08/18 21:00 02/08/18 21:01 DC 02/08/18 21:25 5 MG Info (CONTRAST GIVEN -- Rx MONITORING) 1 each PRN DAILY PRN 02/08/18 20:30 02/10/18 20:29 Iohexol (Omnipaque 300 Mg/ml) 75 ml 1X ONCE 02/08/18 20:30 02/08/18 20:31 DC 02/08/18 20:30 75 ML Ondansetron HCl (Zofran) 4 mg 1X ONCE 02/08/18 20:15 02/08/18 20:16 DC 02/08/18 22:14 4 MG Pantoprazole Sodium (PROTONIX VIAL for IV PUSH) 40 mg 1X ONCE 02/08/18 20:15 02/08/18 20:16 DC 02/08/18 22:15 40 MG Sodium Chloride 1,000 ml @ 1,000 mls/hr 1X ONCE 02/08/18 20:15 02/08/18 21:14 DC 02/08/18 22:15 1,000 MLS/HR Allergies Allergies Allergies Coded Allergies Type Severity Reaction Last Updated Verified No Known Drug Allergies 02/01/17 No Physical Exam Physical Exam Constitutional: Well developed, well nourished, no acute distress, non-toxic appearance. [] HENT: Normocephalic, atraumatic, bilateral external ears normal, oropharynx moist, no oral exudates, nose normal. [] Eyes: PERRLA, EOMI, conjunctiva normal, no discharge. [] Neck: Normal range of motion, no tenderness, supple, no stridor. [] Cardiovascular:Heart rate regular rhythm, no murmur [] Lungs & Thorax: Bilateral breath sounds clear to auscultation [] Abdomen: Flat abdomen. Bowel sounds normal, soft, diffuse tenderness throughout the abdomen, no point tenderness to the right lower quadrant or right upper quadrant specifically, negative psoas sign, negative obturator sign, no guarding no masses, no pulsatile masses. Patient is actively vomiting. Skin: Warm, dry, no erythema, no rash. [] Back: No tenderness, no CVA tenderness. [] Extremities: No tenderness, no cyanosis, no clubbing, ROM intact, no edema. [] Neurologic: Alert and oriented X 3, normal motor function, normal sensory function, no focal deficits noted. [] Psychologic: Affect normal, judgement normal, mood normal. [] Current Patient Data Vital Signs Vital Signs Date Time Temp Pulse Resp B/P (MAP) Pulse Ox O2 Delivery O2 Flow Rate FiO2 02/08/18 22:06 71 151/92 (111) 100 Room Air 02/08/18 19:35 97.0 16 97.0 Lab Values Laboratory Tests Test 02/08/18 19:30 02/08/18 20:45 Urine Collection Type Unknown Urine Color Yellow Urine Clarity Clear Urine pH 6.5 Urine Specific [place] 1.020 Urine Protein 30 mg/dL (NEG-TRACE) Urine Glucose (UA) Negative mg/dL (NEG) Urine Ketones (Stick) 40 mg/dL (NEG) Urine Blood Negative (NEG) Urine Nitrite Negative (NEG) Urine Bilirubin Negative (NEG) Urine Urobilinogen Dipstick 0.2 mg/dL (0.2 mg/dL) Urine Leukocyte Esterase Negative (NEG) Urine RBC Occ /HPF (0-2) Urine WBC 1-4 /HPF (0-4) Urine Squamous Epithelial Cells Few /LPF Urine Bacteria Few /HPF (0-FEW) Urine Hyaline Casts Few /HPF Urine Mucus Mod /LPF Urine Opiates Screen Neg (NEG) Urine Methadone Screen Neg (NEG) Urine Barbiturates Neg (NEG) Urine Phencyclidine Screen Neg (NEG) Urine Amphetamine/Methamphetamine Neg (NEG) Urine Benzodiazepines Screen Neg (NEG) Urine Cocaine Screen Neg (NEG) Urine Cannabinoids Screen Pos (NEG) Urine Ethyl Alcohol Neg (NEG) White Blood Count 11.0 x10^3/uL (4.0-11.0) Red Blood Count 5.81 x10^6/uL (4.30-5.70) H Hemoglobin 16.6 g/dL (13.0-17.5) Hematocrit 47.9 % (39.0-53.0) Mean Corpuscular Volume 82 fL (79-100) Mean Corpuscular Hemoglobin 29 pg (25-35) Mean Corpuscular Hemoglobin Concent 35 g/dL (31-37) Red Cell Distribution Width 14.5 % (11.5-14.5) Platelet Count 232 x10^3/uL (140-400) Neutrophils (%) (Auto) 79 % (31-73) H Lymphocytes (%) (Auto) 13 % (24-48) L Monocytes (%) (Auto) 7 % (0-9) Eosinophils (%) (Auto) 1 % (0-3) Basophils (%) (Auto) 1 % (0-3) Neutrophils # (Auto) 8.7 x10^3uL (1.8-7.7) H Lymphocytes # (Auto) 1.5 x10^3/uL (1.0-4.8) Monocytes # (Auto) 0.7 x10^3/uL (0.0-1.1) Eosinophils # (Auto) 0.1 x10^3/uL (0.0-0.7) Basophils # (Auto) 0.1 x10^3/uL (0.0-0.2) Sodium Level 138 mmol/L (136-145) Potassium Level 3.4 mmol/L (3.5-5.1) L Chloride Level 103 mmol/L (98-107) Carbon Dioxide Level 22 mmol/L (21-32) Anion Gap 13 (6-14) Blood Urea Nitrogen 16 mg/dL (8-26) Creatinine 1.7 mg/dL (0.7-1.3) H Estimated GFR (Cockcroft-Gault) 61.3 BUN/Creatinine Ratio 9 (6-20) Glucose Level 102 mg/dL (70-99) H Calcium Level 10.2 mg/dL (8.5-10.1) H Total Bilirubin 0.5 mg/dL (0.2-1.0) Aspartate Amino Transferase (AST) 28 U/L (15-37) Alanine Aminotransferase (ALT) 23 U/L (16-63) Alkaline Phosphatase 78 U/L (46-116) Total Protein 9.0 g/dL (6.4-8.2) H Albumin 5.0 g/dL (3.4-5.0) Albumin/Globulin Ratio 1.3 (1.0-1.7) Lipase 88 U/L (73-393) Ethyl Alcohol Level < 10 mg/dL (0-10) Laboratory Tests 02/08/18 20:45 Laboratory Tests 02/08/18 20:45 EKG EKG [] Radiology/Procedures Radiology/Procedures []PROCEDURE: CT ABD PELV W/ IV CONTRST ONLY PQRS Compliance statement: One or more of the following individualized dose reduction techniques were utilized for this examination: 1. Automated exposure control. 2. Adjustment of the mA and/or kV according to patient size. 3. Use of iterative reconstruction technique. Indication:abd pain with nausea and vomiting TECHNIQUE: CT abdomen and pelvis with IV contrast with multiplanar reformats. COMPARISON: 11/16/2016 FINDINGS: Heart is normal in size. No pericardial or pleural effusion. Clear lung bases. Liver, spleen, gallbladder, pancreas, adrenals and kidneys are within normal limits. No free pelvic fluid or ascites. No retroperitoneal or pelvic adenopathy. No bowel obstruction. Normal appendix. Urinary bladder demonstrates no radiopaque stones. No pneumoperitoneum. Prominent gastric rugae are seen. No suspicious bony lesion. IMPRESSION: Questionable thickening of the gastric rugae. Clinically correlate for gastritis. Electronically signed by: Piero Ramirez DO (02/08/2018 9:49 PM) [facility] DICTATED and SIGNED BY: PIERO RAMIREZ DO DATE: 02/08/182141 Course & Med Decision Making Course & Med Decision Making Pertinent Labs and Imaging studies reviewed. (See chart for details) This is a 22-year-old male patient presenting to the ED today with nausea, vomiting, diarrhea, generalized abdominal pain that began initially 2 weeks ago after eating at [employer] chicken then symptoms have subsided, he states symptoms began yesterday again after eating at [employer]. He is actively vomiting loudly in the ED. Patient was given IV fluids, nausea medicine, Protonix, and Haldol, Labs are negative for any acute findings. Urine drug screen was noted for marijuana use. CT of the abdomen and pelvic was noted for gastritis. Patient was discharged with Zofran and famotidine. Instructed to avoid using marijuana. Instructed to follow-up with the PCP or the provided GI doctor in the next 3 days. Dragon Disclaimer Dragon Disclaimer This electronic medical record was generated, in whole or in part, using a voice recognition dictation system. Departure Departure Impression: Primary Impression: Gastritis Additional Impression: Marijuana use Disposition: 01 HOME, SELF-CARE Condition: STABLE Referrals: NO PCP (PCP) CLAUDETTE ZEE MD follow up with your doctor in one week Patient Instructions: Gastritis, Adult, [id number], Marijuana Abuse-Brief Additional Instructions: You were evaluated in the emergency room and noted for gastritis. Take the prescribed medications as ordered. Avoid using marijuana it increases chances of your symptoms recurring. Follow up with your own doctor or the provided GI doctor in the course of this week. Scripts Famotidine (FAMOTIDINE) 20 Mg Tablet 20 MG PO DAILY, #30 TAB Prov: MUTUNGA,CEZAR [employer]ICE PRESIDENT OF [employer]ELOPMENT 02/08/18 Ondansetron (ZOFRAN ODT) 4 Mg Tab.rapdis 1 TAB SL Q8HRS, #15 TAB Prov: MUTUNGA,CEZAR [employer]ICE [employer]ELOPMENT 02/08/18 Problem Qualifiers Primary Impression: Gastritis Gastritis type: unspecified gastritis Chronicity: chronic Gastritis bleeding: without bleeding Qualified Codes: K29.50 - Unspecified chronic gastritis without bleeding CEZAR QUIROZ APRN Feb 08, 2018 20:25
[2018-02-08 20:30] LABS: BARBITURATES NEG (NEG); BENZODIAZEPINES NEG (NEG); CANNABINOIDS POS (NEG); COCAINE NEG (NEG); METHADONE NEG (NEG); OPIATES NEG (NEG); PHENCYCLIDINE NEG (NEG)
[2018-02-08] MEDS ORDERED: IOHEXOL 300 MG/ML 100ML VIAL. IV ONE (20:30)
[2018-02-08] MEDS ORDERED: CONTRAST GIVEN. MC PRN (20:30)
[2018-02-08 20:31] LABS: AMPHETAMINE/METHAMPHETAMINE NEG (NEG)
[2018-02-08 20:43] LABS: BACTERIA,URINE FEW /HPF (0-FEW); HYALINE CASTS, URINE FEW /HPF; RBC,URINE OCC /HPF (0-2); SQUAMOUS EPITHELIAL CELL,UR FEW /LPF
[2018-02-08] MEDS ORDERED: HALOPERIDOL LACTATE 5 MG/ML VIAL. IVP ONE (21:00)
[2018-02-08 21:11] LABS: BASO # 0.1 x10^3/uL (0.0-0.2); BASO % 1 % (0-3); EOS # 0.1 x10^3/uL (0.0-0.7); EOS % 1 % (0-3); HEMATOCRIT 47.9 % (39.0-53.0); HEMOGLOBIN 16.6 g/dL (13.0-17.5); LYMPH # 1.5 x10^3/uL (1.0-4.8); LYMPH % 13 % (24-48); MEAN CORPUSCULAR HEMOGLOBIN 29 pg (25-35); MEAN CORPUSCULAR HGB CONC 35 g/dL (31-37); MEAN CORPUSCULAR VOLUME 82 fL (79-100); MONO # 0.7 x10^3/uL (0.0-1.1); MONO % 7 % (0-9); NEUT # 8.7 x10^3uL (1.8-7.7); NEUT % 79 % (31-73); PLATELET COUNT 232 x10^3/uL (140-400); RED BLOOD COUNT 5.81 x10^6/uL (4.30-5.70); RED CELL DISTRIBUTION WIDTH 14.5 % (11.5-14.5)
[2018-02-08 21:20] LABS: CALCIUM 10.2 mg/dL (8.5-10.1); CREATININE 1.7 mg/dL (0.7-1.3); GFR 61.3; POTASSIUM 3.4 mmol/L (3.5-5.1)
[2018-02-08 21:26] LABS: ALBUMIN/GLOBULIN RATIO 1.3 (1.0-1.7); TOTAL BILIRUBIN 0.5 mg/dL (0.2-1.0)
--- NOTE | 2018-02-08 21:52 | RAD ---
PQRS Compliance statement: One or more of the following individualized dose reduction techniques were utilized for this examination: 1. Automated exposure control. 2. Adjustment of the mA and/or kV according to patient size. 3. Use of iterative reconstruction technique. Indication:abd pain with nausea and vomiting TECHNIQUE: CT abdomen and pelvis with IV contrast with multiplanar reformats. COMPARISON: 11/16/2016 FINDINGS: Heart is normal in size. No pericardial or pleural effusion. Clear lung bases. Liver, spleen, gallbladder, pancreas, adrenals and kidneys are within normal limits. No free pelvic fluid or ascites. No retroperitoneal or pelvic adenopathy. No bowel obstruction. Normal appendix. Urinary bladder demonstrates no radiopaque stones. No pneumoperitoneum. Prominent gastric rugae are seen. No suspicious bony lesion. IMPRESSION: Questionable thickening of the gastric rugae. Clinically correlate for gastritis. Electronically signed by: Piero Gerardo DO (02/08/2018 9:49 PM) [facility]
[2018-02-08] MEDS ORDERED: ONDA4TAB10 SL (22:27)
[2018-02-08] MEDS ORDERED: FAMO20TA5 PO (22:27)
[2018-02-08 22:36] VITALS: BP 137/64
== END 2018-02-08 23:02 | disposition home or self-care (01) ==
LOC: ER 19:01
DX: K29.70 Gastritis, unspecified, without bleeding (principal)
CPT/HCPCS: 36415; 74177; 80053; 80307; 81001; 83690; 85025; 96361; 96374; 96375; 99285; C9113; G0480; J1630; J2405; J7030; Q9967; G0479

== ENCOUNTER 2018-05-03 16:23 | Emergency (ER) | payer SELFPAY ==
[~2018-05-03] VITALS: Ht 172.7 cm; Wt 61.2 kg
[~2018-05-03 16:23] MED LIST changes: +FAMO20TA5 PO
[2018-05-03] MEDS ORDERED: ONDANSETRON PF 4 MG/2 ML VIAL. IV ONE (16:45)
[2018-05-03] MEDS ORDERED: IV NORMAL SALINE 1000ML BAG 1,000 ML IV ONE ×2 (16:45→17:30)
[2018-05-03 17:01] LABS: BASO # 0.1 x10^3/uL (0.0-0.2); BASO % 1 % (0-3); EOS # 0.4 x10^3/uL (0.0-0.7); EOS % 5 % (0-3); HEMATOCRIT 47.5 % (39.0-53.0); HEMOGLOBIN 16.1 g/dL (13.0-17.5); LYMPH # 3.3 x10^3/uL (1.0-4.8); LYMPH % 42 % (24-48); MEAN CORPUSCULAR HEMOGLOBIN 29 pg (25-35); MEAN CORPUSCULAR HGB CONC 34 g/dL (31-37); MEAN CORPUSCULAR VOLUME 85 fL (79-100); MONO # 0.6 x10^3/uL (0.0-1.1); MONO % 8 % (0-9); NEUT # 3.4 x10^3uL (1.8-7.7); NEUT % 44 % (31-73); PLATELET COUNT 235 x10^3/uL (140-400); RED BLOOD COUNT 5.58 x10^6/uL (4.30-5.70); RED CELL DISTRIBUTION WIDTH 14.1 % (11.5-14.5); WHITE BLOOD COUNT 7.8 x10^3/uL (4.0-11.0)
[2018-05-03] MEDS ORDERED: HALOPERIDOL LACTATE 5 MG/ML VIAL. ONE (17:29)
[2018-05-03] MEDS ORDERED: HALOPERIDOL 5 MG TABLET. PO ONE (17:30)
[2018-05-03] MEDS ORDERED: HALOPERIDOL LACTATE 5 MG/ML VIAL. IVP ONE (17:45)
[2018-05-03 18:16] LABS: CREATININE 1.2 mg/dL (0.7-1.3); GFR 91.6; POTASSIUM 3.7 mmol/L (3.5-5.1)
[2018-05-03 18:22] LABS: ALBUMIN 3.9 g/dL (3.4-5.0); ALBUMIN/GLOBULIN RATIO 1.1 (1.0-1.7); TOTAL BILIRUBIN 0.3 mg/dL (0.2-1.0); TOTAL PROTEIN 7.5 g/dL (6.4-8.2)
[2018-05-03 18:24] LABS: BILIRUBIN,URINE NEGATIVE (NEG); CLARITY,URINE CLEAR; COLOR,URINE YELLOW; NITRITE,URINE NEGATIVE (NEG); PROTEIN,URINE 100 mg/dL (NEG-TRACE); UROBILINOGEN,URINE 0.2 mg/dL (0.2 mg/dL)
[2018-05-03 18:31] LABS: BARBITURATES NEG (NEG); BENZODIAZEPINES NEG (NEG); CANNABINOIDS POS (NEG); COCAINE NEG (NEG); METHADONE NEG (NEG); OPIATES NEG (NEG); PHENCYCLIDINE NEG (NEG)
[2018-05-03 18:32] LABS: AMPHETAMINE/METHAMPHETAMINE NEG (NEG)
[2018-05-03 18:38] LABS: BACTERIA,URINE 0 /HPF (0-FEW); RBC,URINE 0 /HPF (0-2); SQUAMOUS EPITHELIAL CELL,UR OCC /LPF; WBC,URINE RARE /HPF (0-4)
--- NOTE | 2018-05-03 18:58 | PHYS DOC ---
Past Medical History Past Medical History: No Pertinent History Past Surgical History: No Surgical History Alcohol Use: Occasionally Drug Use: Marijuana Adult General Chief Complaint Chief Complaint: NAUSEA/VOMITING/DIARRHA HPI HPI Patient is a 22 year old male who presents with nausea and vomiting. The patient called EMS for transport to the hospital. He stated to the nurse that he did this because he knew then he would not have to wait in the waiting room. He states that he ate pizza last night and has been having nausea and vomiting ever since. The patient has been seen at this facility multiple times for similar complaints. He denies fever, diarrhea or bloody stools. Review of Systems Review of Systems Constitutional: Denies fever or chills [] Eyes: Denies change in visual acuity, redness, or eye pain [] HENT: Denies nasal congestion or sore throat [] Respiratory: Denies cough or shortness of breath [] Cardiovascular: No additional information not addressed in HPI [] GI: See history of present illness : Denies dysuria or hematuria [] Musculoskeletal: Denies back pain or joint pain [] Integument: Denies rash or skin lesions [] Neurologic: Denies headache, focal weakness or sensory changes [] Endocrine: Denies polyuria or polydipsia [] All other systems were reviewed and found to be within normal limits, except as documented in this note. Current Medications Current Medications Current Medications Medications (Trade) Dose Ordered Sig/Jose Miguel Start Time Stop Time Status Last Admin Dose Admin Haloperidol (Haldol) 5 mg 1X ONCE 05/03/18 17:30 05/03/18 17:34 DC Haloperidol Lactate (Haldol Inj) 5 mg 1X ONCE 05/03/18 17:45 05/03/18 17:46 DC 05/03/18 17:37 5 MG Ondansetron HCl (Zofran) 4 mg 1X ONCE 05/03/18 16:45 05/03/18 16:46 DC 05/03/18 17:00 4 MG Sodium Chloride 1,000 ml @ 1,000 mls/hr 1X ONCE 05/03/18 17:30 05/03/18 18:29 DC 05/03/18 18:29 1,000 MLS/HR Allergies Allergies Allergies Coded Allergies Type Severity Reaction Last Updated Verified No Known Drug Allergies 05/03/18 No Physical Exam Physical Exam Constitutional: Well developed, well nourished, no acute distress, non-toxic appearance. [] HENT: Normocephalic, atraumatic, bilateral external ears normal, oropharynx moist, no oral exudates, nose normal. [] Eyes: PERRLA, EOMI, conjunctiva normal, no discharge. [] Neck: Normal range of motion, no tenderness, supple, no stridor. [] Cardiovascular:Heart rate regular rhythm, no murmur [] Lungs & Thorax: Bilateral breath sounds clear to auscultation [] Abdomen: Bowel sounds normal, firm, epigastric tenderness, no masses, no pulsatile masses. [] Skin: Warm, dry, no erythema, no rash. [] Back: No tenderness, no CVA tenderness. [] Extremities: No tenderness, no cyanosis, no clubbing, ROM intact, no edema. [] Neurologic: Alert and oriented X 3, normal motor function, normal sensory function, no focal deficits noted. [] Psychologic: Affect normal, judgement normal, mood normal. [] Current Patient Data Vital Signs Vital Signs Date Time Temp Pulse Resp B/P (MAP) Pulse Ox O2 Delivery O2 Flow Rate FiO2 05/03/18 18:59 82 18 151/83 (105) 100 Room Air 05/03/18 16:25 97.4 97.4 Lab Values Laboratory Tests Test 05/03/18 16:50 05/03/18 17:50 05/03/18 18:15 White Blood Count 7.8 x10^3/uL (4.0-11.0) Red Blood Count 5.58 x10^6/uL (4.30-5.70) Hemoglobin 16.1 g/dL (13.0-17.5) Hematocrit 47.5 % (39.0-53.0) Mean Corpuscular Volume 85 fL (79-100) Mean Corpuscular Hemoglobin 29 pg (25-35) Mean Corpuscular Hemoglobin Concent 34 g/dL (31-37) Red Cell Distribution Width 14.1 % (11.5-14.5) Platelet Count 235 x10^3/uL (140-400) Neutrophils (%) (Auto) 44 % (31-73) Lymphocytes (%) (Auto) 42 % (24-48) Monocytes (%) (Auto) 8 % (0-9) Eosinophils (%) (Auto) 5 % (0-3) H Basophils (%) (Auto) 1 % (0-3) Neutrophils # (Auto) 3.4 x10^3uL (1.8-7.7) Lymphocytes # (Auto) 3.3 x10^3/uL (1.0-4.8) Monocytes # (Auto) 0.6 x10^3/uL (0.0-1.1) Eosinophils # (Auto) 0.4 x10^3/uL (0.0-0.7) Basophils # (Auto) 0.1 x10^3/uL (0.0-0.2) Sodium Level 140 mmol/L (136-145) Potassium Level 3.7 mmol/L (3.5-5.1) Chloride Level 103 mmol/L (98-107) Carbon Dioxide Level 25 mmol/L (21-32) Anion Gap 12 (6-14) Blood Urea Nitrogen 15 mg/dL (8-26) Creatinine 1.2 mg/dL (0.7-1.3) Estimated GFR (Cockcroft-Gault) 91.6 BUN/Creatinine Ratio 13 (6-20) Glucose Level 121 mg/dL (70-99) H Calcium Level 9.0 mg/dL (8.5-10.1) Total Bilirubin 0.3 mg/dL (0.2-1.0) Aspartate Amino Transferase (AST) 19 U/L (15-37) Alanine Aminotransferase (ALT) 18 U/L (16-63) Alkaline Phosphatase 61 U/L (46-116) Total Protein 7.5 g/dL (6.4-8.2) Albumin 3.9 g/dL (3.4-5.0) Albumin/Globulin Ratio 1.1 (1.0-1.7) Urine Collection Type Unknown Urine Color Yellow Urine Clarity Clear Urine pH 8.0 Urine Specific [place] >=1.030 Urine Protein 100 mg/dL (NEG-TRACE) Urine Glucose (UA) Negative mg/dL (NEG) Urine Ketones (Stick) 40 mg/dL (NEG) Urine Blood Negative (NEG) Urine Nitrite Negative (NEG) Urine Bilirubin Negative (NEG) Urine Urobilinogen Dipstick 0.2 mg/dL (0.2 mg/dL) Urine Leukocyte Esterase Negative (NEG) Urine RBC 0 /HPF (0-2) Urine WBC Rare /HPF (0-4) Urine Squamous Epithelial Cells Occ /LPF Urine Bacteria 0 /HPF (0-FEW) Urine Mucus Marked /LPF Urine Opiates Screen Neg (NEG) Urine Methadone Screen Neg (NEG) Urine Barbiturates Neg (NEG) Urine Phencyclidine Screen Neg (NEG) Urine Amphetamine/Methamphetamine Neg (NEG) Urine Benzodiazepines Screen Neg (NEG) Urine Cocaine Screen Neg (NEG) Urine Cannabinoids Screen Pos (NEG) Urine Ethyl Alcohol Neg (NEG) Laboratory Tests 05/03/18 16:50 Laboratory Tests 05/03/18 17:50 EKG EKG [] Radiology/Procedures Radiology/Procedures [] Course & Med Decision Making Course & Med Decision Making Pertinent Labs and Imaging studies reviewed. (See chart for details) []The patient is gagging and coughing up frothy saliva. He is positive for cannabis. I explained that this can cause a hyperemesis syndrome. He has been counseled to stop smoking marijuana. He is to follow-up with his primary care provider for possible referral to GI. Becki Disclaimer Dragon Disclaimer This electronic medical record was generated, in whole or in part, using a voice recognition dictation system. Departure Departure Impression: Primary Impression: Cannabinoid hyperemesis syndrome Disposition: HOME, SELF-CARE Condition: STABLE Referrals: NO PCP (PCP) Patient Instructions: Cyclic Vomiting Syndrome, Marijuana Abuse-Brief Additional Instructions: Stop smoking marijuana. This is the probable cause of your vomiting syndrome. Follow-up with your primary care provider for referral to a director dietetics department for a scope. If worsening return to the emergency department. REGINA DIMAS APRN May 03, 2018 18:58
[2018-05-03 18:59] VITALS: BP 151/83
== END 2018-05-03 19:16 | disposition home or self-care (01) ==
LOC: ER 16:23
DX: F12.288 Cannabis dependence with other cannabis-induced disorder (principal); R11.2 Nausea with vomiting, unspecified
CPT/HCPCS: 36415; 80053; 80307; 81001; 85025; 96361; 96374; 96375; 99284; J1630; J2405; J7030

== ENCOUNTER 2018-05-15 18:57 | Emergency (ER) | payer SELFPAY ==
[~2018-05-15] VITALS: Ht 172.7 cm; Wt 61.2 kg
[2018-05-15] MEDS ORDERED: CAPSAICIN 0.025% TOPICAL CREAM 60GM TUBE. TP STA (19:48)
[2018-05-15 20:07] LABS: BASO # 0.1 x10^3/uL (0.0-0.2); BASO % 1 % (0-3); EOS # 0.1 x10^3/uL (0.0-0.7); EOS % 1 % (0-3); HEMATOCRIT 44.6 % (39.0-53.0); HEMOGLOBIN 15.7 g/dL (13.0-17.5); LYMPH # 1.4 x10^3/uL (1.0-4.8); LYMPH % 13 % (24-48); MEAN CORPUSCULAR HEMOGLOBIN 29 pg (25-35); MEAN CORPUSCULAR HGB CONC 35 g/dL (31-37); MEAN CORPUSCULAR VOLUME 84 fL (79-100); MONO # 0.4 x10^3/uL (0.0-1.1); MONO % 4 % (0-9); NEUT # 8.8 x10^3uL (1.8-7.7); NEUT % 82 % (31-73); PLATELET COUNT 255 x10^3/uL (140-400); RED BLOOD COUNT 5.33 x10^6/uL (4.30-5.70); WHITE BLOOD COUNT 10.8 x10^3/uL (4.0-11.0)
[2018-05-15 20:14] LABS: CREATININE 1.4 mg/dL (0.7-1.3); GFR 76.7; POTASSIUM 3.9 mmol/L (3.5-5.1)
--- NOTE | 2018-05-15 20:15 | PHYS DOC ---
Past Medical History Past Medical History: No Pertinent History Past Surgical History: No Surgical History Alcohol Use: Occasionally Drug Use: Marijuana Adult General Chief Complaint Chief Complaint: ABDOMINAL PAIN HPI HPI Patient is a 22 year old m with cc of abdo pain, and vomiting. Patient is a history of recurrent abdominal pain or vomiting he's been seen in this emergency room several times she said he has also got other hospitals i and all day ever do recheck lab work and given medication he has not yet seen a GI doctor. He does not drink alcohol he does smoke marijuana every day he has been smoking since he was 13 I asked him if he thinks that could be the cause if anybody ever mentioned that he said that he knows that is not what is causing it is even if he doesn't smoke for a day or 2 this still can happen. Sharp epigastric radiates throughout and up with the chest yet. Lightheaded after vomiting several times today and so partner brought him into the emergency room for evaluation called 911 but apparently according to the patient's partner medics recommended private car Review of Systems Review of Systems Constitutional: Denies fever or chills [] Eyes: Denies change in visual acuity, redness, or eye pain [] HENT: Denies nasal congestion or sore throat [] Respiratory: Denies cough or shortness of breath [] Cardiovascular: No additional information not addressed in HPI [] Neurologic: tinglign of the hands Endocrine: Denies polyuria or polydipsia [] All other systems were reviewed and found to be within normal limits, except as documented in this note. Current Medications Current Medications Current Medications Medications (Trade) Dose Ordered Sig/Jose Miguel Start Time Stop Time Status Last Admin Dose Admin Capsaicin (Zostrix) 1 dc 1X STAT 05/15/18 19:48 05/15/18 19:49 UNV Lorazepam (Ativan) 2 mg 1X ONCE 05/15/18 20:45 05/15/18 20:46 DC 05/15/18 20:38 2 MG Ondansetron HCl (Zofran) 4 mg 1X ONCE 05/15/18 20:30 05/15/18 20:31 DC 05/15/18 20:09 4 MG Sodium Chloride 1,000 ml @ 1,000 mls/hr 1X ONCE 05/15/18 20:30 05/15/18 21:29 05/15/18 20:10 1,000 MLS/HR Allergies Allergies Allergies Coded Allergies Type Severity Reaction Last Updated Verified No Known Drug Allergies 05/03/18 No Physical Exam Physical Exam Constitutional: Well developed, well nourished, no acute distress, non-toxic appearance. [] HENT: Normocephalic, atraumatic, bilateral external ears normal, oropharynx moist, no oral exudates, nose normal. [] Eyes: PERRLA, EOMI, conjunctiva normal, no discharge. [] Neck: Normal range of motion, no tenderness, supple, no stridor. [] Pulmonary: Normal respiratory effort no increased work of breathing no obvious chest wall trauma Abdomen: Bowel sounds normal, soft, epigastric tenderness, no masses, no pulsatile masses. [] Skin: Warm, dry, no erythema, no rash. [] Back: No tenderness, no CVA tenderness. [] Extremities: No tenderness, no cyanosis, no clubbing, ROM intact, no edema. [] Neurologic: Alert and oriented X 3, normal motor function, normal sensory function, no focal deficits noted. [] Psychologic: Affect normal, judgement normal, mood normal. [] Current Patient Data Vital Signs Vital Signs Date Time Temp Pulse Resp B/P (MAP) Pulse Ox O2 Delivery O2 Flow Rate FiO2 05/15/18 19:47 97.6 92 20 138/88 (105) 99 Room Air 97.6 Lab Values Laboratory Tests Test 05/15/18 19:52 White Blood Count 10.8 x10^3/uL (4.0-11.0) Red Blood Count 5.33 x10^6/uL (4.30-5.70) Hemoglobin 15.7 g/dL (13.0-17.5) Hematocrit 44.6 % (39.0-53.0) Mean Corpuscular Volume 84 fL (79-100) Mean Corpuscular Hemoglobin 29 pg (25-35) Mean Corpuscular Hemoglobin Concent 35 g/dL (31-37) Red Cell Distribution Width 14.0 % (11.5-14.5) Platelet Count 255 x10^3/uL (140-400) Neutrophils (%) (Auto) 82 % (31-73) H Lymphocytes (%) (Auto) 13 % (24-48) L Monocytes (%) (Auto) 4 % (0-9) Eosinophils (%) (Auto) 1 % (0-3) Basophils (%) (Auto) 1 % (0-3) Neutrophils # (Auto) 8.8 x10^3uL (1.8-7.7) H Lymphocytes # (Auto) 1.4 x10^3/uL (1.0-4.8) Monocytes # (Auto) 0.4 x10^3/uL (0.0-1.1) Eosinophils # (Auto) 0.1 x10^3/uL (0.0-0.7) Basophils # (Auto) 0.1 x10^3/uL (0.0-0.2) Sodium Level 140 mmol/L (136-145) Potassium Level 3.9 mmol/L (3.5-5.1) Chloride Level 102 mmol/L (98-107) Carbon Dioxide Level 23 mmol/L (21-32) Anion Gap 15 (6-14) H Blood Urea Nitrogen 15 mg/dL (8-26) Creatinine 1.4 mg/dL (0.7-1.3) H Estimated GFR (Cockcroft-Gault) 76.7 BUN/Creatinine Ratio 11 (6-20) Glucose Level 114 mg/dL (70-99) H Calcium Level 10.0 mg/dL (8.5-10.1) Total Bilirubin 0.3 mg/dL (0.2-1.0) Aspartate Amino Transferase (AST) 18 U/L (15-37) Alanine Aminotransferase (ALT) 20 U/L (16-63) Alkaline Phosphatase 70 U/L (46-116) Total Protein 8.5 g/dL (6.4-8.2) H Albumin 4.5 g/dL (3.4-5.0) Albumin/Globulin Ratio 1.1 (1.0-1.7) Lipase 76 U/L (73-393) Laboratory Tests 05/15/18 19:52 Laboratory Tests 05/15/18 19:52 EKG EKG [] Radiology/Procedures Radiology/Procedures [] Course & Med Decision Making Course & Med Decision Making Pertinent Labs and Imaging studies reviewed. (See chart for details) []Probably cannabis hyperemesis syndrome patient was treated symptomatically in the emergency room. The pharmacy was out of capsaicin cream I strongly recommended a trial of cessation to see if he improves I reviewed his CT scan from January that was basically normal possibly mild gastritis. pt had some improvement with fluids and zofran counseled cessation MJ and pepcid. Dragon Disclaimer Dragon Disclaimer This electronic medical record was generated, in whole or in part, using a voice recognition dictation system. Departure Departure Impression: Primary Impression: Nausea & vomiting Disposition: HOME, SELF-CARE Condition: STABLE Referrals: CLAUDETTE ZEE MD Patient Instructions: Nausea and Vomiting, [id number] Additional Instructions: consider stopping marijuana JOSE DEE MD May 15, 2018 20:15
[2018-05-15 20:20] LABS: ALBUMIN 4.5 g/dL (3.4-5.0); ALBUMIN/GLOBULIN RATIO 1.1 (1.0-1.7); TOTAL BILIRUBIN 0.3 mg/dL (0.2-1.0); TOTAL PROTEIN 8.5 g/dL (6.4-8.2)
[2018-05-15] MEDS ORDERED: ONDANSETRON PF 4 MG/2 ML VIAL. IV ONE (20:30)
[2018-05-15] MEDS ORDERED: IV NORMAL SALINE 1000ML BAG 1,000 ML IV ONE (20:30)
[2018-05-15 21:32] VITALS: BP 146/82
== END 2018-05-15 21:38 | disposition home or self-care (01) ==
LOC: ER 18:57
DX: R11.2 Nausea with vomiting, unspecified (principal); R10.13 Epigastric pain; R42 Dizziness and giddiness; F12.20 Cannabis dependence, uncomplicated
CPT/HCPCS: 36415; 80053; 83690; 85025; 96361; 96374; 96375; 99283; J2060; J2405; J7030

== ENCOUNTER 2018-05-19 19:35 | Emergency (ER) | payer SELFPAY ==
[~2018-05-19] VITALS: Ht 172.7 cm; Wt 65.8 kg
[2018-05-19 20:12] VITALS: BP 144/96
[2018-05-19] MEDS ORDERED: ONDANSETRON PF 4 MG/2 ML VIAL. IV ONE (20:15)
[2018-05-19] MEDS ORDERED: IV NORMAL SALINE 1000ML BAG 1,000 ML IV ONE (20:15)
[2018-05-19] MEDS ORDERED: FAMOTIDINE 20 MG/2 ML VIAL IVP ONE (20:15)
[2018-05-19] MEDS ORDERED: KETOROLAC 30 MG/ML VIAL. IV ONE (20:15)
[2018-05-19] MEDS ORDERED: LIDO:MAALOX 1:1 20 ML SINGLE DOSE. PO ONE (20:30)
[2018-05-19 20:41] LABS: BASO # 0.1 x10^3/uL (0.0-0.2); BASO % 1 % (0-3); EOS # 0.4 x10^3/uL (0.0-0.7); EOS % 5 % (0-3); HEMATOCRIT 45.2 % (39.0-53.0); LYMPH # 3.1 x10^3/uL (1.0-4.8); LYMPH % 40 % (24-48); MEAN CORPUSCULAR HEMOGLOBIN 28 pg (25-35); MEAN CORPUSCULAR HGB CONC 33 g/dL (31-37); MEAN CORPUSCULAR VOLUME 84 fL (79-100); MONO # 0.5 x10^3/uL (0.0-1.1); MONO % 7 % (0-9); NEUT # 3.7 x10^3uL (1.8-7.7); NEUT % 47 % (31-73); PLATELET COUNT 230 x10^3/uL (140-400); RED BLOOD COUNT 5.36 x10^6/uL (4.30-5.70); RED CELL DISTRIBUTION WIDTH 14.1 % (11.5-14.5); WHITE BLOOD COUNT 7.9 x10^3/uL (4.0-11.0)
[2018-05-19 20:44] LABS: CALCIUM 9.7 mg/dL (8.5-10.1); CREATININE 1.1 mg/dL (0.7-1.3); GFR 101.3
[2018-05-19 20:52] LABS: ALBUMIN 4.3 g/dL (3.4-5.0); ALBUMIN/GLOBULIN RATIO 1.2 (1.0-1.7); MAGNESIUM 1.9 mg/dL (1.8-2.4); TOTAL BILIRUBIN 0.6 mg/dL (0.2-1.0); TOTAL PROTEIN 7.8 g/dL (6.4-8.2)
[2018-05-19 21:26] LABS: BILIRUBIN,URINE NEGATIVE (NEG); CLARITY,URINE CLEAR; COLOR,URINE YELLOW; NITRITE,URINE NEGATIVE (NEG); PH,URINE 6.5; PROTEIN,URINE NEGATIVE (NEG-TRACE)
[2018-05-19 21:34] LABS: AMPHETAMINE/METHAMPHETAMINE NEG (NEG); BARBITURATES NEG (NEG); BENZODIAZEPINES NEG (NEG); CANNABINOIDS POS (NEG); COCAINE NEG (NEG); METHADONE NEG (NEG); OPIATES NEG (NEG); PHENCYCLIDINE NEG (NEG)
--- NOTE | 2018-05-19 21:38 | PHYS DOC ---
Past Medical History Past Medical History: No Pertinent History Past Surgical History: No Surgical History Smoking: Cigarettes, 1 Pack Per Day Alcohol Use: Occasionally Drug Use: Marijuana Adult General Chief Complaint Chief Complaint: NAUSEA/VOMITING/DIARRHA HPI HPI 22-year-old male presents with epigastric abdominal pain with associated nausea/ vomiting/diarrhea which is been persistent for the last 5 days. Reports some radiation upward into chest. Denies pleuritic pain. Patient reports he was recently seen on Thursday for same and was discharged home. Patient was instructed to discontinue marijuana as that could be contacted treating factor. Patient reports has had symptoms for the past year. [facility] review noted patient previously seen for similar 7 other visits. Reports has had 3 radiologic studies in the last several months. [facility] noted last CT abd/ pelvis from 02/16/18 which noted possible gastritis. Denies trauma. Denies fever or chills. Denies travel outside the [place]. Denies known sick contacts. Patient reports symptoms same as prior. Review of Systems Review of Systems Constitutional: Denies fever or chills [] Eyes: Denies change in visual acuity, redness, or eye pain [] HENT: Denies nasal congestion or sore throat [] Respiratory: Denies cough or shortness of breath [] Cardiovascular: Denies palpitations, reports some radiation to chest GI: Reports abdominal pain, nausea, vomiting, and diarrhea [] : Denies dysuria or hematuria [] Musculoskeletal: Denies back pain or joint pain [] Integument: Denies rash or skin lesions [] Neurologic: Denies headache, focal weakness or sensory changes [] Complete systems were reviewed and found to be within normal limits, except as documented in this note. Current Medications Current Medications Current Medications Medications (Trade) Dose Ordered Sig/Jose Miguel Start Time Stop Time Status Last Admin Dose Admin Famotidine (Pepcid Vial) 20 mg 1X ONCE 05/19/18 20:15 05/19/18 20:21 DC 05/19/18 20:39 20 MG Ketorolac Tromethamine (Toradol 30mg Vial) 15 mg 1X ONCE 05/19/18 20:15 05/19/18 20:21 DC 05/19/18 20:40 15 MG Multi-Ingredient Mouthwash/Gargle (Gi Cocktail) 20 ml 1X ONCE 05/19/18 20:30 05/19/18 20:31 DC 05/19/18 20:39 20 ML Ondansetron HCl (Zofran) 4 mg 1X ONCE 05/19/18 20:15 05/19/18 20:21 DC 05/19/18 20:40 4 MG Sodium Chloride 1,000 ml @ 1,000 mls/hr 1X ONCE 05/19/18 20:15 05/19/18 21:14 DC 05/19/18 20:41 1,000 MLS/HR Allergies Allergies Allergies Coded Allergies Type Severity Reaction Last Updated Verified No Known Drug Allergies 05/03/18 No Physical Exam Physical Exam Constitutional: Well developed, well nourished, no acute distress, non-toxic appearance. [] HENT: Normocephalic, atraumatic, oropharynx moist Eyes: Conjunctiva normal, no discharge. [] Neck: Normal range of motion, no tenderness, supple Cardiovascular: Heart rate regular rhythm, no murmur [] Lungs & Thorax: Bilateral breath sounds clear to auscultation [] Abdomen: Soft, mild epigastric tenderness, no pulsatile masses. [] Skin: Warm, dry, no erythema, no rash. [] Back: No tenderness, no CVA tenderness. [] Extremities: No tenderness, ROM intact, no edema. [] Neurologic: Alert and oriented X 3, no focal deficits noted. [] Psychologic: Affect normal, judgement normal, mood normal. [] Current Patient Data Vital Signs Vital Signs Date Time Temp Pulse Resp B/P (MAP) Pulse Ox O2 Delivery O2 Flow Rate FiO2 05/19/18 20:12 98.3 63 16 144/96 (112) 98 Room Air 98.3 Lab Values Laboratory Tests Test 05/19/18 20:17 05/19/18 21:15 White Blood Count 7.9 x10^3/uL (4.0-11.0) Red Blood Count 5.36 x10^6/uL (4.30-5.70) Hemoglobin 15.0 g/dL (13.0-17.5) Hematocrit 45.2 % (39.0-53.0) Mean Corpuscular Volume 84 fL (79-100) Mean Corpuscular Hemoglobin 28 pg (25-35) Mean Corpuscular Hemoglobin Concent 33 g/dL (31-37) Red Cell Distribution Width 14.1 % (11.5-14.5) Platelet Count 230 x10^3/uL (140-400) Neutrophils (%) (Auto) 47 % (31-73) Lymphocytes (%) (Auto) 40 % (24-48) Monocytes (%) (Auto) 7 % (0-9) Eosinophils (%) (Auto) 5 % (0-3) H Basophils (%) (Auto) 1 % (0-3) Neutrophils # (Auto) 3.7 x10^3uL (1.8-7.7) Lymphocytes # (Auto) 3.1 x10^3/uL (1.0-4.8) Monocytes # (Auto) 0.5 x10^3/uL (0.0-1.1) Eosinophils # (Auto) 0.4 x10^3/uL (0.0-0.7) Basophils # (Auto) 0.1 x10^3/uL (0.0-0.2) Sodium Level 139 mmol/L (136-145) Potassium Level 4.0 mmol/L (3.5-5.1) Chloride Level 102 mmol/L (98-107) Carbon Dioxide Level 26 mmol/L (21-32) Anion Gap 11 (6-14) Blood Urea Nitrogen 8 mg/dL (8-26) Creatinine 1.1 mg/dL (0.7-1.3) Estimated GFR (Cockcroft-Gault) 101.3 BUN/Creatinine Ratio 7 (6-20) Glucose Level 83 mg/dL (70-99) Calcium Level 9.7 mg/dL (8.5-10.1) Magnesium Level 1.9 mg/dL (1.8-2.4) Total Bilirubin 0.6 mg/dL (0.2-1.0) Aspartate Amino Transferase (AST) 21 U/L (15-37) Alanine Aminotransferase (ALT) 25 U/L (16-63) Alkaline Phosphatase 68 U/L (46-116) Total Protein 7.8 g/dL (6.4-8.2) Albumin 4.3 g/dL (3.4-5.0) Albumin/Globulin Ratio 1.2 (1.0-1.7) Lipase 71 U/L (73-393) L Urine Collection Type Unknown Urine Color Yellow Urine Clarity Clear Urine pH 6.5 Urine Specific [place] 1.025 Urine Protein Negative mg/dL (NEG-TRACE) Urine Glucose (UA) Negative mg/dL (NEG) Urine Ketones (Stick) Trace mg/dL (NEG) Urine Blood Negative (NEG) Urine Nitrite Negative (NEG) Urine Bilirubin Negative (NEG) Urine Urobilinogen Dipstick 1.0 mg/dL (0.2 mg/dL) Urine Leukocyte Esterase Negative (NEG) Urine RBC Occ /HPF (0-2) Urine WBC Occ /HPF (0-4) Urine Squamous Epithelial Cells Few /LPF Urine Bacteria 0 /HPF (0-FEW) Urine Mucus Marked /LPF Urine Opiates Screen Neg (NEG) Urine Methadone Screen Neg (NEG) Urine Barbiturates Neg (NEG) Urine Phencyclidine Screen Neg (NEG) Urine Amphetamine/Methamphetamine Neg (NEG) Urine Benzodiazepines Screen Neg (NEG) Urine Cocaine Screen Neg (NEG) Urine Cannabinoids Screen Pos (NEG) Urine Ethyl Alcohol Neg (NEG) Laboratory Tests 05/19/18 20:17 Laboratory Tests 05/19/18 20:17 EKG EKG [] Radiology/Procedures Radiology/Procedures [] Course & Med Decision Making Course & Med Decision Making Pertinent Labs and Imaging studies reviewed. (See chart for details) Patient presents with chronic epigastric abdominal pain with radiation to chest and associated nausea/vomiting/diarrhea. Patient has had intermittent issues for the last year. [facility] review noted patient seen 7 previous visits in the ER for same. Patient does report history of marijuana abuse. Reports stop smoking 5 days ago. Abdomen non-peritoneal. [facility] review also noted recent CT imaging from February 16, 2018 with possible gastritis and without other significant finding. Low cardiac risk factors. PERC negative. Labs obtained and posted to chart. Symptomatic treatment provided. IV fluid hydration given. Symptoms appear likely secondary to gastritis. Cannot fully exclude marijuana- induced cyclic vomiting syndrome. Patient stable for discharge with outpatient follow-up with PCP/ GI. GI referral provided. Discussed findings and plan with patient and family, who acknowledge understanding and agreement. Dragon Disclaimer Dragon Disclaimer This electronic medical record was generated, in whole or in part, using a voice recognition dictation system. Departure Departure Impression: Primary Impression: Chronic abdominal pain Additional Impression: Nausea vomiting and diarrhea Disposition: HOME, SELF-CARE Condition: STABLE Referrals: NO PCP (PCP) CLAUDETTE ZEE MD Patient Instructions: Abdominal Pain (Nonspecific), Diet for Diarrhea, Adult, Gastritis, Adult, [id number]-Hipi, Nausea and Vomiting, [id number] Scripts Sucralfate (CARAFATE) 1 Gm Tablet 1 TAB PO QID for 10 Days, #40 TAB 0 Refills Prov: FAUSTINA SALMON DO 05/19/18 Ondansetron (ONDANSETRON ODT) 4 Mg Tab.rapdis 1 TAB PO PRN Q6-8HRS for VOMITING, #16 TAB Prov: FAUSTINA SALMON DO 05/19/18 Problem Qualifiers FAUSTINA SALMON DO May 19, 2018 21:38
[2018-05-19 21:39] LABS: BACTERIA,URINE 0 /HPF (0-FEW); RBC,URINE OCC /HPF (0-2); SQUAMOUS EPITHELIAL CELL,UR FEW /LPF; WBC,URINE OCC /HPF (0-4)
[2018-05-19] MEDS ORDERED: ONDA4TAB12 PO (21:56)
[2018-05-19] MEDS ORDERED: SUCR1TAB35 PO (21:56)
== END 2018-05-19 22:15 | disposition home or self-care (01) ==
LOC: ER 19:35
DX: R10.13 Epigastric pain (principal); G89.29 Other chronic pain; R11.2 Nausea with vomiting, unspecified; R19.7 Diarrhea, unspecified; F17.210 Nicotine dependence, cigarettes, uncomplicated
CPT/HCPCS: 36415; 80053; 80307; 81001; 83690; 83735; 85025; 96361; 96374; 96375; 99283; J1885; J2405; J3490; J7030

== ENCOUNTER 2018-06-16 16:15 | Emergency (ER) | payer SELFPAY ==
[~2018-06-16] VITALS: Ht 185.4 cm; Wt 67.2 kg
[~2018-06-16 16:15] MED LIST changes: +ONDA4TAB12 PO; +SUCR1TAB35 PO
[2018-06-16] MEDS ORDERED: CONTRAST GIVEN. MC PRN (16:45)
[2018-06-16] MEDS ORDERED: IV NORMAL SALINE 1000ML BAG 1,000 ML IV ONE (17:00)
[2018-06-16] MEDS ORDERED: ONDANSETRON PF 4 MG/2 ML VIAL. IV ONE (17:00)
[2018-06-16] MEDS ORDERED: FAMOTIDINE 20 MG/2 ML VIAL IVP ONE (17:00)
[2018-06-16 17:08] LABS: BASO # 0.1 x10^3/uL (0.0-0.2); BASO % 1 % (0-3); EOS # 0.3 x10^3/uL (0.0-0.7); EOS % 4 % (0-3); HEMATOCRIT 44.4 % (39.0-53.0); HEMOGLOBIN 15.2 g/dL (13.0-17.5); LYMPH # 2.4 x10^3/uL (1.0-4.8); LYMPH % 29 % (24-48); MEAN CORPUSCULAR HEMOGLOBIN 28 pg (25-35); MEAN CORPUSCULAR HGB CONC 34 g/dL (31-37); MEAN CORPUSCULAR VOLUME 83 fL (79-100); MONO # 0.6 x10^3/uL (0.0-1.1); MONO % 8 % (0-9); NEUT # 4.6 x10^3uL (1.8-7.7); NEUT % 58 % (31-73); PLATELET COUNT 224 x10^3/uL (140-400); RED BLOOD COUNT 5.34 x10^6/uL (4.30-5.70); RED CELL DISTRIBUTION WIDTH 13.5 % (11.5-14.5); WHITE BLOOD COUNT 8.1 x10^3/uL (4.0-11.0)
[2018-06-16 17:44] LABS: BILIRUBIN,URINE NEGATIVE (NEG); CLARITY,URINE CLEAR; COLOR,URINE YELLOW; NITRITE,URINE NEGATIVE (NEG); PH,URINE 8.5; PROTEIN,URINE NEGATIVE (NEG-TRACE); UROBILINOGEN,URINE 0.2 mg/dL (0.2 mg/dL)
[2018-06-16 17:46] LABS: CALCIUM 9.7 mg/dL (8.5-10.1); CREATININE 1.3 mg/dL (0.7-1.3); GFR 83.5; POTASSIUM 3.4 mmol/L (3.5-5.1)
[2018-06-16 17:50] LABS: BARBITURATES NEG (NEG); BENZODIAZEPINES NEG (NEG); CANNABINOIDS POS (NEG); COCAINE NEG (NEG); METHADONE NEG (NEG); OPIATES NEG (NEG); PHENCYCLIDINE NEG (NEG)
[2018-06-16 17:51] LABS: ALBUMIN 4.3 g/dL (3.4-5.0); ALBUMIN/GLOBULIN RATIO 1.1 (1.0-1.7); TOTAL BILIRUBIN 0.5 mg/dL (0.2-1.0); TOTAL PROTEIN 8.1 g/dL (6.4-8.2)
[2018-06-16 17:51] LABS: AMPHETAMINE/METHAMPHETAMINE NEG (NEG)
[2018-06-16 18:12] LABS: RBC,URINE 0 /HPF (0-2); WBC,URINE OCC /HPF (0-4)
[2018-06-16 18:13] LABS: BACTERIA,URINE 0 /HPF (0-FEW); SQUAMOUS EPITHELIAL CELL,UR OCC /LPF
[2018-06-16 18:46] VITALS: BP 149/76
[2018-06-16] MEDS ORDERED: ONDA4TAB12 PO (18:58)
--- NOTE | 2018-06-16 18:58 | PHYS DOC ---
Past Medical History Past Medical History: No Pertinent History Past Surgical History: No Surgical History Additional Information: PT STATES HE QUIT SMOKING 2 MONTHS AGO. Alcohol Use: Occasionally Drug Use: Marijuana Adult General Chief Complaint Chief Complaint: ABDOMINAL PAIN HPI HPI Patient is a 22 year old male with history of narcotic-induced gastritis, who presents today complaining of 8 out of 10 epigastric abdominal pain with nausea and vomiting that has been going on for 6 days. Patient denies any diarrhea. Denies any hematemesis. Review of Systems Review of Systems Constitutional: Denies fever or chills [] Eyes: Denies change in visual acuity, redness, or eye pain [] HENT: Denies nasal congestion or sore throat [] Respiratory: Denies cough or shortness of breath [] Cardiovascular: No additional information not addressed in HPI [] GI: Reports epigastric abdominal pain, nausea and vomiting, denies bloody stools or diarrhea [] : Denies dysuria or hematuria [] Musculoskeletal: Denies back pain or joint pain [] Integument: Denies rash or skin lesions [] Neurologic: Denies headache, focal weakness or sensory changes [] All other systems were reviewed and found to be within normal limits, except as documented in this note. Current Medications Current Medications Current Medications Medications (Trade) Dose Ordered Sig/Jose Miguel Start Time Stop Time Status Last Admin Dose Admin Famotidine (Pepcid Vial) 20 mg 1X ONCE 06/16/18 17:00 06/16/18 17:01 DC 06/16/18 17:22 20 MG Info (CONTRAST GIVEN -- Rx MONITORING) 1 each PRN DAILY PRN 06/16/18 16:45 06/18/18 16:44 UNV Ondansetron HCl (Zofran) 4 mg 1X ONCE 06/16/18 17:00 06/16/18 17:01 DC 06/16/18 17:20 4 MG Sodium Chloride 1,000 ml @ 1,000 mls/hr 1X ONCE 06/16/18 17:00 06/16/18 17:59 DC 06/16/18 17:00 1,000 MLS/HR Allergies Allergies Allergies Coded Allergies Type Severity Reaction Last Updated Verified No Known Drug Allergies 05/03/18 No Physical Exam Physical Exam Constitutional: Well developed, well nourished, no acute distress, non-toxic appearance. [] HENT: Normocephalic, atraumatic, bilateral external ears normal, oropharynx moist, no oral exudates, nose normal. [] Eyes: PERRLA, EOMI, conjunctiva normal, no discharge. [] Neck: Normal range of motion, no tenderness, supple, no stridor. [] Cardiovascular:Heart rate regular rhythm, no murmur [] Lungs & Thorax: Bilateral breath sounds clear to auscultation [] Abdomen: Bowel sounds normal, soft, slight epigastric tenderness, no right upper quadrant or right lower quadrant tenderness, no masses, no pulsatile masses. [] Skin: Warm, dry, no erythema, no rash. [] Back: No tenderness, no CVA tenderness. [] Extremities: No tenderness, no cyanosis, no clubbing, ROM intact, no edema. [] Neurologic: Alert and oriented X 3, normal motor function, normal sensory function, no focal deficits noted. [] Psychologic: Affect normal, judgement normal, mood normal. [] Current Patient Data Vital Signs Vital Signs Date Time Temp Pulse Resp B/P (MAP) Pulse Ox O2 Delivery O2 Flow Rate FiO2 06/16/18 18:46 72 16 149/76 (100) 98 Room Air 06/16/18 16:38 98.2 98.2 Lab Values Laboratory Tests Test 06/16/18 16:49 06/16/18 17:12 White Blood Count 8.1 x10^3/uL (4.0-11.0) Red Blood Count 5.34 x10^6/uL (4.30-5.70) Hemoglobin 15.2 g/dL (13.0-17.5) Hematocrit 44.4 % (39.0-53.0) Mean Corpuscular Volume 83 fL (79-100) Mean Corpuscular Hemoglobin 28 pg (25-35) Mean Corpuscular Hemoglobin Concent 34 g/dL (31-37) Red Cell Distribution Width 13.5 % (11.5-14.5) Platelet Count 224 x10^3/uL (140-400) Neutrophils (%) (Auto) 58 % (31-73) Lymphocytes (%) (Auto) 29 % (24-48) Monocytes (%) (Auto) 8 % (0-9) Eosinophils (%) (Auto) 4 % (0-3) H Basophils (%) (Auto) 1 % (0-3) Neutrophils # (Auto) 4.6 x10^3uL (1.8-7.7) Lymphocytes # (Auto) 2.4 x10^3/uL (1.0-4.8) Monocytes # (Auto) 0.6 x10^3/uL (0.0-1.1) Eosinophils # (Auto) 0.3 x10^3/uL (0.0-0.7) Basophils # (Auto) 0.1 x10^3/uL (0.0-0.2) Sodium Level 139 mmol/L (136-145) Potassium Level 3.4 mmol/L (3.5-5.1) L Chloride Level 102 mmol/L (98-107) Carbon Dioxide Level 24 mmol/L (21-32) Anion Gap 13 (6-14) Blood Urea Nitrogen 13 mg/dL (8-26) Creatinine 1.3 mg/dL (0.7-1.3) Estimated GFR (Cockcroft-Gault) 83.5 BUN/Creatinine Ratio 10 (6-20) Glucose Level 89 mg/dL (70-99) Calcium Level 9.7 mg/dL (8.5-10.1) Total Bilirubin 0.5 mg/dL (0.2-1.0) Aspartate Amino Transferase (AST) 18 U/L (15-37) Alanine Aminotransferase (ALT) 22 U/L (16-63) Alkaline Phosphatase 66 U/L (46-116) Total Protein 8.1 g/dL (6.4-8.2) Albumin 4.3 g/dL (3.4-5.0) Albumin/Globulin Ratio 1.1 (1.0-1.7) Lipase 72 U/L (73-393) L Ethyl Alcohol Level < 10 mg/dL (0-10) Urine Collection Type Unknown Urine Color Yellow Urine Clarity Clear Urine pH 8.5 Urine Specific [place] 1.020 Urine Protein Negative mg/dL (NEG-TRACE) Urine Glucose (UA) Negative mg/dL (NEG) Urine Ketones (Stick) 15 mg/dL (NEG) Urine Blood Negative (NEG) Urine Nitrite Negative (NEG) Urine Bilirubin Negative (NEG) Urine Urobilinogen Dipstick 0.2 mg/dL (0.2 mg/dL) Urine Leukocyte Esterase Negative (NEG) Urine RBC 0 /HPF (0-2) Urine WBC Occ /HPF (0-4) Urine Squamous Epithelial Cells Occ /LPF Urine Bacteria 0 /HPF (0-FEW) Urine Mucus Mod /LPF Urine Opiates Screen Neg (NEG) Urine Methadone Screen Neg (NEG) Urine Barbiturates Neg (NEG) Urine Phencyclidine Screen Neg (NEG) Urine Amphetamine/Methamphetamine Neg (NEG) Urine Benzodiazepines Screen Neg (NEG) Urine Cocaine Screen Neg (NEG) Urine Cannabinoids Screen Pos (NEG) Urine Ethyl Alcohol Neg (NEG) Laboratory Tests 06/16/18 16:49 Laboratory Tests 06/16/18 16:49 EKG EKG [] Radiology/Procedures Radiology/Procedures [] Course & Med Decision Making Course & Med Decision Making Pertinent Labs and Imaging studies reviewed. (See chart for details) This is a 22-year-old male patient with history of marijuana-induced gastritis, who presents today complaining of nausea and vomiting for 6 days. CBC CMP lipase are negative for any acute findings, urine analysis is negative for any acute findings, positive for marijuana use. Patient was given IV fluids Zofran and famotidine and GI cocktail. Educated on the need to avoid using marijuana considering it causes is most of the symptoms. Discharged with Zofran. Follow- up with GI which I provided in the course of this week or next week. Dragon Disclaimer Dragon Disclaimer This electronic medical record was generated, in whole or in part, using a voice recognition dictation system. Departure Departure Impression: Primary Impression: Gastritis Additional Impressions: Nausea & vomiting Marijuana use Abdominal pain Disposition: 01 HOME, SELF-CARE Condition: STABLE Referrals: NO PCP (PCP) CLAUDETTE ZEE MD Follow-up in one week Patient Instructions: Gastritis, Adult, Marijuana Abuse-Brief, Nausea and Vomiting, [id number] Additional Instructions: You were evaluated in the emergency room for chronic abdominal pain with nausea and vomiting. Consider not using marijuana, it causes some of your symptoms. Take the prescribed nausea medicine as needed for nausea vomiting. Follow-up with the provided GI specialist in the course of this week or next week. Scripts Ondansetron (ONDANSETRON ODT) 4 Mg Tab.rapdis 1 TAB PO PRN Q6-8HRS, #16 TAB Prov: MUTUNGA,CEZAR DIELECTRIC TESTER 06/16/18 Problem Qualifiers Primary Impression: Gastritis Gastritis type: unspecified gastritis Chronicity: chronic Gastritis bleeding: without bleeding Qualified Codes: K29.50 - Unspecified chronic gastritis without bleeding Additional Impressions: Nausea & vomiting Vomiting type: unspecified Vomiting Intractability: non-intractable Qualified Codes: R11.2 - Nausea with vomiting, unspecified Abdominal pain Abdominal location: epigastric Qualified Codes: R10.13 - Epigastric pain CEZAR QUIROZ APRN Jun 16, 2018 18:58
== END 2018-06-16 19:09 | disposition home or self-care (01) ==
LOC: ER 16:15
DX: K29.70 Gastritis, unspecified, without bleeding (principal); F12.90 Cannabis use, unspecified, uncomplicated
CPT/HCPCS: 36415; 80053; 80307; 81001; 83690; 85025; 96361; 96374; 96375; 99283; G0480; J2405; J3490; J7030

== ENCOUNTER 2018-08-17 15:47 | Emergency (ER) | payer SELFPAY ==
[~2018-08-17] VITALS: Ht 172.7 cm; Wt 70.3 kg
[2018-08-17] MEDS ORDERED: IV NORMAL SALINE 1000ML BAG 1,000 ML IV ONE (16:00)
[2018-08-17] MEDS ORDERED: LIDO:MAALOX 1:1 20 ML SINGLE DOSE. SWSW ONE (16:00)
[2018-08-17] MEDS ORDERED: FAMOTIDINE 20 MG/2 ML VIAL IVP ONE (16:00)
--- NOTE | 2018-08-17 16:02 | PHYS DOC ---
Past Medical History Past Medical History: No Pertinent History Past Surgical History: No Surgical History Alcohol Use: Occasionally Drug Use: Marijuana Adult General Chief Complaint Chief Complaint: NAUSEA/VOMITING/DIARRHA HPI HPI Patient is a 22 year old male presented to ER today for evaluation of nausea, vomiting, diarrhea, abdominal pain. Patient also had epigastric chest pain. The symptoms started again today. Patient had this problem off and on for about 2 years. Patient had been evaluated here numerous time for the same problem, he is scheduled to see a GI doctor in December of this year. Patient denies any fever, no blood in his stool. Patient denies any antibiotic OR sick contacts. Review of Systems Review of Systems Constitutional: Denies fever or chills [] Eyes: Denies change in visual acuity, redness, or eye pain [] HENT: Denies nasal congestion or sore throat [] Respiratory: Denies cough or shortness of breath [] Cardiovascular: No additional information not addressed in HPI [] GI: POSITIVE FOR abdominal pain, nausea, vomiting, AND diarrhea [] : Denies dysuria or hematuria [] Musculoskeletal: Denies back pain or joint pain [] Integument: Denies rash or skin lesions [] Neurologic: Denies headache, focal weakness or sensory changes [] Endocrine: Denies polyuria or polydipsia [] All other systems were reviewed and found to be within normal limits, except as documented in this note. Current Medications Current Medications Current Medications Medications (Trade) Dose Ordered Sig/[facility] Start Time Stop Time Status Last Admin Dose Admin Famotidine (Pepcid Vial) 20 mg 1X ONCE 08/17/18 16:00 08/17/18 16:07 DC 08/17/18 16:36 20 MG Haloperidol Lactate (Haldol Inj) 5 mg 1X ONCE 08/17/18 17:00 08/17/18 17:01 DC 08/17/18 17:06 5 MG Ketorolac Tromethamine (Toradol 30mg Vial) 30 mg 1X ONCE 08/17/18 18:00 08/17/18 18:01 DC Lorazepam (Ativan) 1 mg 1X ONCE 08/17/18 17:00 08/17/18 17:01 DC 08/17/18 17:07 1 MG Multi-Ingredient Mouthwash/Gargle (Gi Cocktail) 20 ml 1X ONCE 08/17/18 16:00 08/17/18 16:07 DC Ondansetron HCl (Zofran) 8 mg 1X ONCE 08/17/18 16:30 08/17/18 16:31 DC 08/17/18 16:36 8 MG Sodium Chloride 1,000 ml @ 1,000 mls/hr 1X ONCE 08/17/18 16:00 08/17/18 16:59 DC 08/17/18 16:36 1,000 MLS/HR Allergies Allergies Allergies Coded Allergies Type Severity Reaction Last Updated Verified No Known Drug Allergies 05/03/18 No Physical Exam Physical Exam Constitutional: Well developed, well nourished, no acute distress, non-toxic appearance. [] HENT: Normocephalic, atraumatic, bilateral external ears normal, oropharynx moist, no oral exudates, nose normal. [] Eyes: PERRLA, EOMI, conjunctiva normal, no discharge. [] Neck: Normal range of motion, no tenderness, supple, no stridor. [] Cardiovascular:Heart rate regular rhythm, no murmur [] Lungs & Thorax: Bilateral breath sounds clear to auscultation [] Abdomen: Bowel sounds normal, soft, There is tenderness to palpation in epigastric area, no masses, no pulsatile masses. [] Skin: Warm, dry, no erythema, no rash. [] Back: No tenderness, no CVA tenderness. [] Extremities: No tenderness, no cyanosis, no clubbing, ROM intact, no edema. [] Neurologic: Alert and oriented X 3, normal motor function, normal sensory function, no focal deficits noted. [] Psychologic: Affect normal, judgement normal, mood normal. [] Current Patient Data Vital Signs Vital Signs Date Time Temp Pulse Resp B/P (MAP) Pulse Ox O2 Delivery O2 Flow Rate FiO2 08/17/18 15:59 97.7 89 20 140/98 (112) 100 Room Air 97.7 Lab Values Laboratory Tests Test 08/17/18 16:20 08/17/18 16:30 Urine Collection Type Unknown Urine Color Yellow Urine Clarity Clear Urine pH 8.5 Urine Specific [place] 1.025 Urine Protein Negative mg/dL (NEG-TRACE) Urine Glucose (UA) Negative mg/dL (NEG) Urine Ketones (Stick) Trace mg/dL (NEG) Urine Blood Negative (NEG) Urine Nitrite Negative (NEG) Urine Bilirubin Negative (NEG) Urine Urobilinogen Dipstick 0.2 mg/dL (0.2 mg/dL) Urine Leukocyte Esterase Negative (NEG) Urine RBC 0 /HPF (0-2) Urine WBC 0 /HPF (0-4) Urine Bacteria 0 /HPF (0-FEW) Urine Opiates Screen Neg (NEG) Urine Methadone Screen Neg (NEG) Urine Barbiturates Neg (NEG) Urine Phencyclidine Screen Neg (NEG) Urine Amphetamine/Methamphetamine Neg (NEG) Urine Benzodiazepines Screen Neg (NEG) Urine Cocaine Screen Neg (NEG) Urine Cannabinoids Screen Pos (NEG) Urine Ethyl Alcohol Neg (NEG) White Blood Count 7.4 x10^3/uL (4.0-11.0) Red Blood Count 5.81 x10^6/uL (4.30-5.70) H Hemoglobin 16.1 g/dL (13.0-17.5) Hematocrit 48.3 % (39.0-53.0) Mean Corpuscular Volume 83 fL (79-100) Mean Corpuscular Hemoglobin 28 pg (25-35) Mean Corpuscular Hemoglobin Concent 33 g/dL (31-37) Red Cell Distribution Width 13.8 % (11.5-14.5) Platelet Count 290 x10^3/uL (140-400) Neutrophils (%) (Auto) 54 % (31-73) Lymphocytes (%) (Auto) 32 % (24-48) Monocytes (%) (Auto) 8 % (0-9) Eosinophils (%) (Auto) 5 % (0-3) H Basophils (%) (Auto) 1 % (0-3) Neutrophils # (Auto) 4.0 x10^3uL (1.8-7.7) Lymphocytes # (Auto) 2.4 x10^3/uL (1.0-4.8) Monocytes # (Auto) 0.6 x10^3/uL (0.0-1.1) Eosinophils # (Auto) 0.3 x10^3/uL (0.0-0.7) Basophils # (Auto) 0.1 x10^3/uL (0.0-0.2) Prothrombin Time 13.3 SEC (11.7-14.0) Prothrombin Time INR 1.0 (0.8-1.1) PTT 32 SEC (24-38) Sodium Level 139 mmol/L (136-145) Potassium Level 3.4 mmol/L (3.5-5.1) L Chloride Level 99 mmol/L (98-107) Carbon Dioxide Level 26 mmol/L (21-32) Anion Gap 14 (6-14) Blood Urea Nitrogen 13 mg/dL (8-26) Creatinine 1.3 mg/dL (0.7-1.3) Estimated GFR (Cockcroft-Gault) 83.5 BUN/Creatinine Ratio 10 (6-20) Glucose Level 91 mg/dL (70-99) Calcium Level 9.8 mg/dL (8.5-10.1) Total Bilirubin 0.8 mg/dL (0.2-1.0) Aspartate Amino Transferase (AST) 19 U/L (15-37) Alanine Aminotransferase (ALT) 26 U/L (16-63) Alkaline Phosphatase 77 U/L (46-116) Creatine Kinase 198 U/L (39-308) Creatine Kinase MB (Mass) 0.6 ng/mL (0.0-3.6) Creatine Kinase MB Relative Index 0.3 % (0-4) Troponin I Quantitative < 0.017 ng/mL (0.000-0.055) Total Protein 9.0 g/dL (6.4-8.2) H Albumin 4.7 g/dL (3.4-5.0) Albumin/Globulin Ratio 1.1 (1.0-1.7) Lipase 91 U/L (73-393) Laboratory Tests 08/17/18 16:30 Laboratory Tests 08/17/18 16:30 EKG EKG EKG WAS READ BY THIS PHYSICIAN AT 1649, RATE OF 96 BPM, NO STEMI. Radiology/Procedures Radiology/Procedures [][facility] [address] [place] [address] IMAGING REPORT Signed PATIENT: TERENCE FORD ACCOUNT: [id number] : 1995 LOCATION: ER AGE: 22 SEX: M EXAM STATUS: PRE ER ORD. PHYSICIAN: KOSTAS JOAQUIN DO REASON: ABDOMINAL PAIN, NAUSEA, VOMITING PROCEDURE: ACUTE ABDOMEN SERIES EXAM: Abdomen acute complete. HISTORY: Pain. COMPARISON: CT dated 02/08/2018. FINDINGS: Frontal upright and supine views of the abdomen and a frontal view the chest are obtained. There are calcified granulomas within the right upper lobe. There is no infiltrate, pleural effusion or pneumothorax. The heart is normal in size. There are suspected bilateral cervical ribs. No abnormally dilated air-filled small bowel seen. There is no transition point to suggest obstruction. There are incidentally nonfused posterior element at the lower sacral levels. There is no free air. IMPRESSION: 1. No acute pulmonary finding. 2. Nonobstructive bowel gas pattern. Electronically signed by: Cheyanne Sanchez MD (08/17/2018 4:42 PM) [facility] DICTATED and SIGNED BY: CHEYANNE SANCHEZ MD DATE: 08/17/18 164 Course & Med Decision Making Course & Med Decision Making Pertinent Labs and Imaging studies reviewed. (See chart for details) Patient felt much better now, work up felt to shown any acute problem, will discharge him home, he will need to follow up with GI DOCTOR FOR THIS CHRONIC CONDITION. Dragon Disclaimer Dragon Disclaimer This electronic medical record was generated, in whole or in part, using a voice recognition dictation system. Departure Departure Impression: Primary Impression: Abdominal pain Additional Impressions: Gastritis Nausea & vomiting Marijuana use Disposition: 01 HOME, SELF-CARE Condition: IMPROVED Referrals: NO PCP (PCP) FOLLOW UP WITH YOUR GI DOCTOR FOR FURTHER EVALUATION. Patient Instructions: Abdominal Pain, Marijuana Abuse and Chemical Dependency, Nausea and Vomiting, Estx-ga-Eser Scripts Metoclopramide Hcl (REGLAN) 10 Mg Tablet 1 TAB PO QID PRN for NAUSEA, #30 TAB Prov: KOSTAS JOAQUIN DO 08/17/18 Problem Qualifiers KOSTAS JOAQUIN DO Aug 17, 2018 16:02
[2018-08-17] MEDS ORDERED: ONDANSETRON PF 4 MG/2 ML VIAL. IV ONE (16:30)
[2018-08-17 16:36] LABS: BILIRUBIN,URINE NEGATIVE (NEG); CLARITY,URINE CLEAR; COLOR,URINE YELLOW; NITRITE,URINE NEGATIVE (NEG); PH,URINE 8.5; PROTEIN,URINE NEGATIVE (NEG-TRACE); UROBILINOGEN,URINE 0.2 mg/dL (0.2 mg/dL)
[2018-08-17 16:40] LABS: BASO # 0.1 x10^3/uL (0.0-0.2); BASO % 1 % (0-3); EOS # 0.3 x10^3/uL (0.0-0.7); EOS % 5 % (0-3); HEMATOCRIT 48.3 % (39.0-53.0); HEMOGLOBIN 16.1 g/dL (13.0-17.5); LYMPH # 2.4 x10^3/uL (1.0-4.8); LYMPH % 32 % (24-48); MEAN CORPUSCULAR HEMOGLOBIN 28 pg (25-35); MEAN CORPUSCULAR HGB CONC 33 g/dL (31-37); MEAN CORPUSCULAR VOLUME 83 fL (79-100); MONO # 0.6 x10^3/uL (0.0-1.1); MONO % 8 % (0-9); NEUT % 54 % (31-73); PLATELET COUNT 290 x10^3/uL (140-400); RED BLOOD COUNT 5.81 x10^6/uL (4.30-5.70); RED CELL DISTRIBUTION WIDTH 13.8 % (11.5-14.5); WHITE BLOOD COUNT 7.4 x10^3/uL (4.0-11.0)
[2018-08-17 16:43] LABS: BARBITURATES NEG (NEG); BENZODIAZEPINES NEG (NEG); CANNABINOIDS POS (NEG); COCAINE NEG (NEG); METHADONE NEG (NEG); OPIATES NEG (NEG); PHENCYCLIDINE NEG (NEG)
--- NOTE | 2018-08-17 16:45 | RAD ---
EXAM: Abdomen acute complete. HISTORY: Pain. COMPARISON: CT dated 02/08/2018. FINDINGS: Frontal upright and supine views of the abdomen and a frontal view the chest are obtained. There are calcified granulomas within the right upper lobe. There is no infiltrate, pleural effusion or pneumothorax. The heart is normal in size. There are suspected bilateral cervical ribs. No abnormally dilated air-filled small bowel seen. There is no transition point to suggest obstruction. There are incidentally nonfused posterior element at the lower sacral levels. There is no free air. IMPRESSION: 1. No acute pulmonary finding. 2. Nonobstructive bowel gas pattern. Electronically signed by: Cheyanne Sanchez MD (08/17/2018 4:42 PM) [place] [id number]
[2018-08-17 16:48] LABS: BACTERIA,URINE 0 /HPF (0-FEW); RBC,URINE 0 /HPF (0-2); WBC,URINE 0 /HPF (0-4)
[2018-08-17 16:49] LABS: AMPHETAMINE/METHAMPHETAMINE NEG (NEG)
[2018-08-17 16:53] LABS: PROTHROMBIN TIME PATIENT 13.3 SEC (11.7-14.0)
[2018-08-17] MEDS ORDERED: HALOPERIDOL LACTATE 5 MG/ML VIAL. IVP ONE (17:00)
[2018-08-17 17:06] LABS: CALCIUM 9.8 mg/dL (8.5-10.1); CREATININE 1.3 mg/dL (0.7-1.3); GFR 83.5; POTASSIUM 3.4 mmol/L (3.5-5.1)
[2018-08-17 17:11] LABS: ALBUMIN 4.7 g/dL (3.4-5.0); ALBUMIN/GLOBULIN RATIO 1.1 (1.0-1.7); TOTAL BILIRUBIN 0.8 mg/dL (0.2-1.0)
[2018-08-17] MEDS ORDERED: KETOROLAC 30 MG/ML VIAL. IV ONE (18:00)
[2018-08-17] MEDS ORDERED: METO10TA81 PO (18:20)
[2018-08-17 18:47] VITALS: BP 153/93
--- NOTE | 2018-08-18 12:02 | EKG ---
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
== END 2018-08-17 18:53 | disposition home or self-care (01) ==
LOC: ER 15:47
DX: K52.89 Other specified noninfective gastroenteritis and colitis (principal); K29.70 Gastritis, unspecified, without bleeding; R19.7 Diarrhea, unspecified; F12.20 Cannabis dependence, uncomplicated
CPT/HCPCS: 36415; 74022; 80053; 80307; 81001; 82550; 82553; 83690; 84484; 85025; 85610; 85730; 93005; 96361; 96374; 96375; 99284; J1630; J2060; J2405; J3490; J7030

== ENCOUNTER 2018-09-13 19:29 | Emergency (ER) | payer SELFPAY ==
[~2018-09-13] VITALS: Ht 172.7 cm; Wt 63.5 kg
[~2018-09-13 19:29] MED LIST changes: +METO10TA81 PO
[2018-09-13] MEDS ORDERED: IV NORMAL SALINE 1000ML BAG 1,000 ML IV SCH (19:39)
[2018-09-13] MEDS ORDERED: ONDANSETRON PF 4 MG/2 ML VIAL. IV ONE (19:45)
[2018-09-13] MEDS ORDERED: PANTOPRAZOLE IV PUSH 40 MG VIAL. IVP ONE (19:45)
[2018-09-13] MEDS ORDERED: fentaNYL PF VIAL 100 MCG/2 ML VIAL IV ONE (19:45)
--- NOTE | 2018-09-13 19:56 | PHYS DOC ---
Past Medical History Past Medical History: No Pertinent History Past Surgical History: No Surgical History Alcohol Use: None Drug Use: Marijuana Adult General Chief Complaint Chief Complaint: ABDOMINAL PAIN HPI HPI Patient is a 23 year old male who presents with history of stomach ulcers and states he's been looking for a GI doctor and her primary care doctor from last 2 months. Patient states he is unable to find one due to them being booked until next year. Patient states her last 2 days he has been taking Pepcid and Pepto-Bismol and yesterday had black stools and today he vomited black. Patient' s has had nausea, vomiting, diarrhea for 2 days. Patient states in the last 24 hours he's vomited 6 times has had diarrhea 6 times. Patient states that his pain starts in the low mid section and radiates up to the top of his abdomen to the epigastric area. Patient rates his pain a 7 out of 10. Review of Systems Review of Systems Constitutional: Denies fever or chills [] Eyes: Denies change in visual acuity, redness, or eye pain [] HENT: Denies nasal congestion or sore throat [] Respiratory: Denies cough or shortness of breath [] Cardiovascular: No additional information not addressed in HPI [] GI: abdominal pain, nausea, vomiting, bloody stools or diarrhea [] : Denies dysuria or hematuria [] Musculoskeletal: Denies back pain or joint pain [] Integument: Denies rash or skin lesions [] Neurologic: Denies headache, focal weakness or sensory changes [] All other systems were reviewed and found to be within normal limits, except as documented in this note. Current Medications Current Medications Current Medications Medications (Trade) Dose Ordered Sig/[facility] Start Time Stop Time Status Last Admin Dose Admin Fentanyl Citrate (Fentanyl 2ml Vial) 50 mcg 1X ONCE 09/13/18 19:45 09/13/18 19:46 DC 09/13/18 20:26 50 MCG Info (CONTRAST GIVEN -- Rx MONITORING) 1 each PRN DAILY PRN 09/13/18 20:15 09/15/18 20:14 Iohexol (Omnipaque 300 Mg/ml) 75 ml 1X ONCE 09/13/18 20:00 09/13/18 20:02 DC Ondansetron HCl (Zofran) 4 mg 1X ONCE 09/13/18 19:45 09/13/18 19:46 DC 09/13/18 20:25 4 MG Pantoprazole Sodium (PROTONIX VIAL for IV PUSH) 40 mg 1X ONCE 09/13/18 19:45 09/13/18 19:46 DC 09/13/18 20:28 40 MG Sodium Chloride 1,000 ml @ 1,000 mls/hr Q1H 09/13/18 19:39 09/13/18 20:38 DC 09/13/18 20:24 1,000 MLS/HR Allergies Allergies Allergies Coded Allergies Type Severity Reaction Last Updated Verified No Known Drug Allergies 05/03/18 No Physical Exam Physical Exam Constitutional: Well developed, well nourished, no acute distress, non-toxic appearance. [] HENT: Normocephalic, atraumatic, bilateral external ears normal, oropharynx moist, no oral exudates, nose normal. [] Eyes: PERRLA, EOMI, conjunctiva normal, no discharge. [] Neck: Normal range of motion, no tenderness, supple, no stridor. [] Cardiovascular:Heart rate regular rhythm, no murmur [] Lungs & Thorax: Bilateral breath sounds clear to auscultation [] Abdomen: Bowel sounds normal, soft, generalized tenderness, no masses, no pulsatile masses. [] Skin: Warm, dry, no erythema, no rash. [] Back: No tenderness, no CVA tenderness. [] Extremities: No tenderness, no cyanosis, no clubbing, ROM intact, no edema. [] Neurologic: Alert and oriented X 3, normal motor function, normal sensory function, no focal deficits noted. [] Psychologic: Affect normal, judgement normal, mood normal. [] Current Patient Data Vital Signs Vital Signs Date Time Temp Pulse Resp B/P (MAP) Pulse Ox O2 Delivery O2 Flow Rate FiO2 09/13/18 21:03 96 20 142/72 (95) 99 Room Air 09/13/18 19:35 98.9 98.9 Lab Values Laboratory Tests Test 09/13/18 19:37 09/13/18 20:00 09/13/18 20:16 Stool Occult Blood Negative (NEG) Urine Collection Type Unknown Urine Color Yellow Urine Clarity Clear Urine pH 7.5 Urine Specific [place] 1.015 Urine Protein Negative mg/dL (NEG-TRACE) Urine Glucose (UA) Negative mg/dL (NEG) Urine Ketones (Stick) Negative mg/dL (NEG) Urine Blood Negative (NEG) Urine Nitrite Negative (NEG) Urine Bilirubin Negative (NEG) Urine Urobilinogen Dipstick 0.2 mg/dL (0.2 mg/dL) Urine Leukocyte Esterase Negative (NEG) Urine RBC Rare /HPF (0-2) Urine WBC 1-4 /HPF (0-4) Urine Squamous Epithelial Cells Occ /LPF Urine Amorphous Sediment Present /HPF Urine Bacteria 0 /HPF (0-FEW) Urine Mucus Mod /LPF Urine Opiates Screen Neg (NEG) Urine Methadone Screen Neg (NEG) Urine Barbiturates Neg (NEG) Urine Phencyclidine Screen Neg (NEG) Urine Amphetamine/Methamphetamine Neg (NEG) Urine Benzodiazepines Screen Neg (NEG) Urine Cocaine Screen Neg (NEG) Urine Cannabinoids Screen Pos (NEG) Urine Ethyl Alcohol Neg (NEG) White Blood Count 8.1 x10^3/uL (4.0-11.0) Red Blood Count 5.02 x10^6/uL (4.30-5.70) Hemoglobin 13.7 g/dL (13.0-17.5) Hematocrit 41.5 % (39.0-53.0) Mean Corpuscular Volume 83 fL (79-100) Mean Corpuscular Hemoglobin 27 pg (25-35) Mean Corpuscular Hemoglobin Concent 33 g/dL (31-37) Red Cell Distribution Width 13.8 % (11.5-14.5) Platelet Count 221 x10^3/uL (140-400) Neutrophils (%) (Auto) 72 % (31-73) Lymphocytes (%) (Auto) 16 % (24-48) L Monocytes (%) (Auto) 9 % (0-9) Eosinophils (%) (Auto) 3 % (0-3) Basophils (%) (Auto) 1 % (0-3) Neutrophils # (Auto) 5.8 x10^3uL (1.8-7.7) Lymphocytes # (Auto) 1.3 x10^3/uL (1.0-4.8) Monocytes # (Auto) 0.7 x10^3/uL (0.0-1.1) Eosinophils # (Auto) 0.2 x10^3/uL (0.0-0.7) Basophils # (Auto) 0.0 x10^3/uL (0.0-0.2) Sodium Level 142 mmol/L (136-145) Potassium Level 3.8 mmol/L (3.5-5.1) Chloride Level 104 mmol/L (98-107) Carbon Dioxide Level 29 mmol/L (21-32) Anion Gap 9 (6-14) Blood Urea Nitrogen 8 mg/dL (8-26) Creatinine 1.1 mg/dL (0.7-1.3) Estimated GFR (Cockcroft-Gault) 100.4 BUN/Creatinine Ratio 7 (6-20) Glucose Level 79 mg/dL (70-99) Calcium Level 9.0 mg/dL (8.5-10.1) Total Bilirubin 0.2 mg/dL (0.2-1.0) Aspartate Amino Transferase (AST) 24 U/L (15-37) Alanine Aminotransferase (ALT) 18 U/L (16-63) Alkaline Phosphatase 68 U/L (46-116) Total Protein 7.7 g/dL (6.4-8.2) Albumin 3.8 g/dL (3.4-5.0) Albumin/Globulin Ratio 1.0 (1.0-1.7) Lipase 92 U/L (73-393) Laboratory Tests 09/13/18 20:16 Laboratory Tests 09/13/18 20:16 EKG EKG [] Radiology/Procedures Radiology/Procedures [] Impressions: [facility] [address] [place], [place] [id number] IMAGING REPORT Signed PATIENT: TERENCE FORD ACCOUNT: [id number] : 1995 LOCATION: ER AGE: 23 SEX: M EXAM STATUS: REG ER ORD. PHYSICIAN: MINE ESTRADA APRN REASON: abd pain, diarrhea, vomiting, hx ulcers PROCEDURE: CT ABD PELV W/ IV CONTRST ONLY EXAM: CT Abdomen and Pelvis with IV contrast CLINICAL HISTORY: ABD PAIN VOMITING H/O ULCERS COMPARISON: none TECHNIQUE: Helical CT of the abdomen and pelvis was performed following the administration of intravenous contrast. Axial, coronal and sagittal reformatted images were generated. PQRS compliance statement - One or more of the following individualized dose reduction techniques were utilized for this study: 1. Automated exposure control 2. Adjustment of the mA and/or kV according to patient size 3. Use of iterative reconstruction technique FINDINGS: Lower chest: Lung bases are clear. Abdomen and Pelvis: No focal liver lesion. Gallbladder is normal. No biliary ductal dilatation. Spleen is unremarkable. Adrenal glands and pancreas are unremarkable. Symmetric nephrograms. No focal renal lesion. No hydronephrosis. Mild bladder wall thickening may be seen with cystitis. Appendix is normal. No small or large bowel dilatation. Moderate colonic stool content. No abdominal or pelvic lymphadenopathy. No abdominal pelvic ascites. No free intraperitoneal gas. Bones: Symphysis pubis degenerative changes are seen. IMPRESSION: 1. No evidence of bowel obstruction. 2. Mild bladder wall thickening may be seen with cystitis. 3. No evidence for free intraperitoneal gas. No evidence for perforation of a hollow viscus. Electronically signed by: Karthik Toledo MD (09/13/2018 9:21 PM) [facility] DICTATED and SIGNED BY: KARTHIK TOLEDO MD DATE: 09/13/182120 Course & Med Decision Making Course & Med Decision Making Patient is a 23 year old male who presents with history of stomach ulcers and states he's been looking for a GI doctor and her primary care doctor from last 2 months. Patient has a history of hyperemesis with cannabis use. Patient states he is unable to find one due to them being booked until next year. Patient states her last 2 days he has been taking Pepcid and Pepto-Bismol and yesterday had black stools and today he vomited black. Patient's has had nausea , vomiting, diarrhea for 2 days. Patient states in the last 24 hours he's vomited 6 times has had diarrhea 6 times. Patient states that his pain starts in the low mid section and radiates up to the top of his abdomen to the epigastric area. Patient rates his pain a 7 out of 10. Abdomen is soft but has generalized tenderness throughout all quadrants. Skin pink warm and dry. Mucus Membranes moist. Patient states that the pain feels like a knot in his abdomen. Lungs are clear to auscultation all lobes. Heart rate regular without murmur. Patient is ambulatory with a steady gait. Vital signs are 98.9, 95 heart rate, 16 respirations, 132/74. Patient denies shortness of air, chest pain, fever, dizziness, headache, syncope or visual changes, or tingling or weakness. PERRLA. Neurologically intact. Speaks in full clear sentences. Patient is positive for marijuana use. Fecal occult stool negative. Blood work is unremarkable. Urinalysis shows no infection. CT ABD PELV shows 1. No evidence of bowel obstruction. 2. Mild bladder wall thickening may be seen with cystitis. 3. No evidence for free intraperitoneal gas. No evidence for perforation of a hollow viscus. Patient is discharged home with a another referral to GI and told to stop smoking marijuana. Rectal Exam: Normal tone, No mass, Positive control Stool: Brown Guaiac: Negative Dragon Disclaimer Dragon Disclaimer This electronic medical record was generated, in whole or in part, using a voice recognition dictation system. Departure Departure Impression: Primary Impression: Abdominal pain Additional Impression: Nausea & vomiting Disposition: 01 HOME, SELF-CARE Condition: STABLE Referrals: NO PCP (PCP) CLAUDETTE ZEE MD Patient Instructions: Abdominal Pain (Nonspecific), Cyclic Vomiting Syndrome, Nausea and Vomiting Additional Instructions: Follow-up with GI by calling tomorrow to schedule appointment. Stop smoking marijuana. Take medication as prescribed. Scripts Famotidine (PEPCID) 20 Mg Tablet 20 MG PO BID for 10 Days, #20 TAB Prov: MINE ESTRADA APRN 09/13/18 Ondansetron (ONDANSETRON ODT) 4 Mg Tab.rapdis 1 TAB PO PRN Q6-8HRS, #16 TAB Prov: MINE ESTRADA APRN 09/13/18 Problem Qualifiers Primary Impression: Abdominal pain Abdominal location: epigastric Qualified Codes: R10.13 - Epigastric pain Additional Impression: Nausea & vomiting Vomiting type: unspecified Vomiting Intractability: non-intractable Qualified Codes: R11.2 - Nausea with vomiting, unspecified MINE ESTRADA APRN Sep 13, 2018 19:56
[2018-09-13 19:59] LABS: FECAL OB PT NEGATIVE (NEG)
[2018-09-13] MEDS ORDERED: IOHEXOL 300 MG/ML 100ML VIAL. IV ONE ×2 (20:00)
[2018-09-13 20:12] LABS: BILIRUBIN,URINE NEGATIVE (NEG); CLARITY,URINE CLEAR; COLOR,URINE YELLOW; NITRITE,URINE NEGATIVE (NEG); PH,URINE 7.5; PROTEIN,URINE NEGATIVE (NEG-TRACE); UROBILINOGEN,URINE 0.2 mg/dL (0.2 mg/dL)
[2018-09-13] MEDS ORDERED: CONTRAST GIVEN. MC PRN (20:15)
[2018-09-13 20:17] LABS: BARBITURATES NEG (NEG); BENZODIAZEPINES NEG (NEG); COCAINE NEG (NEG); METHADONE NEG (NEG); OPIATES NEG (NEG); PHENCYCLIDINE NEG (NEG)
[2018-09-13 20:18] LABS: AMORPHOUS SEDIMENT,UR PRESENT /HPF; AMPHETAMINE/METHAMPHETAMINE NEG (NEG); BACTERIA,URINE 0 /HPF (0-FEW); CANNABINOIDS POS (NEG); RBC,URINE RARE /HPF (0-2); SQUAMOUS EPITHELIAL CELL,UR OCC /LPF
[2018-09-13 20:29] LABS: BASO % 1 % (0-3); EOS # 0.2 x10^3/uL (0.0-0.7); EOS % 3 % (0-3); HEMATOCRIT 41.5 % (39.0-53.0); HEMOGLOBIN 13.7 g/dL (13.0-17.5); LYMPH # 1.3 x10^3/uL (1.0-4.8); LYMPH % 16 % (24-48); MEAN CORPUSCULAR HEMOGLOBIN 27 pg (25-35); MEAN CORPUSCULAR HGB CONC 33 g/dL (31-37); MEAN CORPUSCULAR VOLUME 83 fL (79-100); MONO # 0.7 x10^3/uL (0.0-1.1); MONO % 9 % (0-9); NEUT # 5.8 x10^3uL (1.8-7.7); NEUT % 72 % (31-73); PLATELET COUNT 221 x10^3/uL (140-400); RED BLOOD COUNT 5.02 x10^6/uL (4.30-5.70); RED CELL DISTRIBUTION WIDTH 13.8 % (11.5-14.5); WHITE BLOOD COUNT 8.1 x10^3/uL (4.0-11.0)
[2018-09-13 20:43] LABS: CREATININE 1.1 mg/dL (0.7-1.3); GFR 100.4; POTASSIUM 3.8 mmol/L (3.5-5.1)
[2018-09-13 20:51] LABS: ALBUMIN 3.8 g/dL (3.4-5.0); TOTAL BILIRUBIN 0.2 mg/dL (0.2-1.0); TOTAL PROTEIN 7.7 g/dL (6.4-8.2)
--- NOTE | 2018-09-13 21:24 | RAD ---
EXAM: CT Abdomen and Pelvis with IV contrast CLINICAL HISTORY: ABD PAIN VOMITING H/O ULCERS COMPARISON: none TECHNIQUE: Helical CT of the abdomen and pelvis was performed following the administration of intravenous contrast. Axial, coronal and sagittal reformatted images were generated. PQRS compliance statement - One or more of the following individualized dose reduction techniques were utilized for this study: 1. Automated exposure control 2. Adjustment of the mA and/or kV according to patient size 3. Use of iterative reconstruction technique FINDINGS: Lower chest: Lung bases are clear. Abdomen and Pelvis: No focal liver lesion. Gallbladder is normal. No biliary ductal dilatation. Spleen is unremarkable. Adrenal glands and pancreas are unremarkable. Symmetric nephrograms. No focal renal lesion. No hydronephrosis. Mild bladder wall thickening may be seen with cystitis. Appendix is normal. No small or large bowel dilatation. Moderate colonic stool content. No abdominal or pelvic lymphadenopathy. No abdominal pelvic ascites. No free intraperitoneal gas. Bones: Symphysis pubis degenerative changes are seen. IMPRESSION: 1. No evidence of bowel obstruction. 2. Mild bladder wall thickening may be seen with cystitis. 3. No evidence for free intraperitoneal gas. No evidence for perforation of a hollow viscus. Electronically signed by: Karthik Alvares MD (09/13/2018 9:21 PM) [facility]
[2018-09-13] MEDS ORDERED: FAMO-63 PO (21:39)
[2018-09-13] MEDS ORDERED: ONDA4TAB12 PO (21:39)
[2018-09-13 22:03] VITALS: BP 144/78
== END 2018-09-13 22:13 | disposition home or self-care (01) ==
LOC: ER 19:29
DX: R11.2 Nausea with vomiting, unspecified (principal); R10.13 Epigastric pain; K92.1 Melena
CPT/HCPCS: 36415; 74177; 80053; 80307; 81001; 82274; 83690; 85025; 96361; 96374; 96375; 99284; C9113; J2405; J3010; J7030; Q9967

== ENCOUNTER 2018-09-28 18:40 | Emergency (ER) | payer SELFPAY ==
[~2018-09-28] VITALS: Ht 175.3 cm; Wt 70.3 kg
[2018-09-28] MEDS ORDERED: ONDA4TAB12 PO (19:09)
--- NOTE | 2018-09-28 19:09 | PHYS DOC ---
Past Medical History Past Medical History: No Pertinent History Past Surgical History: No Surgical History Alcohol Use: None Drug Use: Marijuana Adult General Chief Complaint Chief Complaint: NAUSEA/VOMITING/DIARRHA HPI HPI 23-year-old male states he was playing basketball today and got kneed in the stomach. He states shortly after that he became nauseous. He denies any significant pain. He states he has not been sick. He states he is convinced this is from being kneed in the stomach. He did continue to play after the injury.[] Review of Systems Review of Systems Constitutional: Denies fever or chills [] Eyes: Denies change in visual acuity, redness, or eye pain [] HENT: Denies nasal congestion or sore throat [] Respiratory: Denies cough or shortness of breath [] Cardiovascular: No additional information not addressed in HPI [] GI: Per history of present illness[] : Denies dysuria or hematuria [] Musculoskeletal: Denies back pain or joint pain [] Integument: Denies rash or skin lesions [] Neurologic: Denies headache, focal weakness or sensory changes [] Endocrine: Denies polyuria or polydipsia [] All other systems were reviewed and found to be within normal limits, except as documented in this note. Allergies Allergies Allergies Coded Allergies Type Severity Reaction Last Updated Verified No Known Drug Allergies 05/03/18 No Physical Exam Physical Exam Constitutional: Well developed, well nourished, no acute distress, non-toxic appearance. [] HENT: Normocephalic, atraumatic, bilateral external ears normal, oropharynx moist, no oral exudates, nose normal. [] Eyes: PERRLA, EOMI, conjunctiva normal, no discharge. [] Neck: Normal range of motion, no tenderness, supple, no stridor. [] Cardiovascular:Heart rate regular rhythm, no murmur [] Lungs & Thorax: Bilateral breath sounds clear to auscultation [] Abdomen: Bowel sounds normal, soft, no tenderness, no masses, no pulsatile masses, completely benign. [] Skin: Warm, dry, no erythema, no rash. [] Back: No tenderness, no CVA tenderness. [] Extremities: No tenderness, no cyanosis, no clubbing, ROM intact, no edema. [] Neurologic: Alert and oriented X 3, normal motor function, normal sensory function, no focal deficits noted. [] Psychologic: Affect normal, judgement normal, mood normal. [] Current Patient Data Vital Signs Vital Signs Date Time Temp Pulse Resp B/P (MAP) Pulse Ox O2 Delivery O2 Flow Rate FiO2 09/28/18 18:40 99.1 87 15 128/87 (101) 100 Room Air 99.1 EKG EKG [] Radiology/Procedures Radiology/Procedures [] Course & Med Decision Making Course & Med Decision Making Pertinent Labs and Imaging studies reviewed. (See chart for details) [] Dragon Disclaimer Dragon Disclaimer This electronic medical record was generated, in whole or in part, using a voice recognition dictation system. Departure Departure Impression: Primary Impression: Nausea & vomiting Disposition: 01 HOME, SELF-CARE Condition: STABLE Referrals: NO PCP (PCP) Patient Instructions: Nausea, Adult Additional Instructions: Return to the emergency department with any new or concerning symptoms Scripts Ondansetron (ONDANSETRON ODT) 4 Mg Tab.rapdis 1 TAB PO PRN Q6-8HRS for VOMITING, #16 TAB Prov: ALEJANDRINA MCCULLOUGH DO 09/28/18 Problem Qualifiers Primary Impression: Nausea & vomiting Vomiting type: unspecified Vomiting Intractability: non-intractable Qualified Codes: R11.2 - Nausea with vomiting, unspecified ALEJANDRINA MCCULLOUGH DO Sep 28, 2018 19:09
[2018-09-28 19:15] VITALS: BP 148/90
[2018-09-28] MEDS ORDERED: ONDANSETRON ODT 4 MG TAB.RAPDIS. PO ONE (19:45)
== END 2018-09-28 19:27 | disposition home or self-care (01) ==
LOC: ER 18:40
DX: R11.2 Nausea with vomiting, unspecified (principal)
CPT/HCPCS: 99283; Q0162

== ENCOUNTER 2019-04-04 16:58 | Emergency (ER) | payer SELFPAY ==
[~2019-04-04] VITALS: Ht 175.3 cm; Wt 72.6 kg
[~2019-04-04 16:58] MED LIST changes: +CEPH-264 PO; +PROM25TA10 PO
[2019-04-04 18:11] LABS: BASO # 0.1 x10^3/uL (0.0-0.2); BASO % 1 % (0-3); EOS # 0.3 x10^3/uL (0.0-0.7); EOS % 2 % (0-3); HEMATOCRIT 47.5 % (39.0-53.0); HEMOGLOBIN 16.1 g/dL (13.0-17.5); LYMPH # 2.3 x10^3/uL (1.0-4.8); LYMPH % 20 % (24-48); MEAN CORPUSCULAR HEMOGLOBIN 28 pg (25-35); MEAN CORPUSCULAR HGB CONC 34 g/dL (31-37); MEAN CORPUSCULAR VOLUME 82 fL (79-100); MONO # 0.7 x10^3/uL (0.0-1.1); MONO % 6 % (0-9); NEUT # 8.1 x10^3/uL (1.8-7.7); NEUT % 71 % (31-73); PLATELET COUNT 324 x10^3/uL (140-400); RED BLOOD COUNT 5.78 x10^6/uL (4.30-5.70); RED CELL DISTRIBUTION WIDTH 14.2 % (11.5-14.5); WHITE BLOOD COUNT 11.5 x10^3/uL (4.0-11.0)
[2019-04-04] MEDS ORDERED: KETOROLAC 30 MG/ML VIAL. IVP ONE (18:15)
[2019-04-04] MEDS ORDERED: FAMOTIDINE 20 MG/2 ML VIAL IVP ONE (18:15)
[2019-04-04] MEDS ORDERED: IV NORMAL SALINE 1000ML BAG 1,000 ML IV ONE (18:15)
[2019-04-04] MEDS ORDERED: PROCHLORPERAZINE 10 MG/2 ML VIAL. IV ONE (18:15)
[2019-04-04] MEDS ORDERED: LIDO:MAALOX 1:1 20 ML SINGLE DOSE. SWSW ONE (18:15)
[2019-04-04 18:22] LABS: CALCIUM 10.2 mg/dL (8.5-10.1); CREATININE 1.3 mg/dL (0.7-1.3); GFR 82.8; POTASSIUM 3.2 mmol/L (3.5-5.1)
[2019-04-04 18:28] LABS: ALBUMIN 4.1 g/dL (3.4-5.0); ALBUMIN/GLOBULIN RATIO 1.1 (1.0-1.7); TOTAL BILIRUBIN 0.6 mg/dL (0.2-1.0); TOTAL PROTEIN 7.7 g/dL (6.4-8.2)
[2019-04-04 19:13] LABS: BILIRUBIN,URINE NEGATIVE (NEG); CLARITY,URINE CLOUDY; COLOR,URINE YELLOW; NITRITE,URINE NEGATIVE (NEG); PH,URINE 8.5; PROTEIN,URINE 100 mg/dL (NEG-TRACE)
[2019-04-04] MEDS ORDERED: POTASSIUM CHLORIDE 20 MEQ TABLET.ER. PO ONE (19:15)
[2019-04-04 19:25] LABS: BACTERIA,URINE 0 /HPF (0-FEW); RBC,URINE OCC /HPF (0-2); WBC,URINE OCC /HPF (0-4)
--- NOTE | 2019-04-04 19:32 | PHYS DOC ---
Past Medical History Past Medical History: Other Additional Past Medical Histor: Gastritis, stomach Ulcer Past Surgical History: No Surgical History Alcohol Use: None Drug Use: Marijuana Adult General Chief Complaint Chief Complaint: ABDOMINAL PAIN HPI HPI Patient is a 23 year old male with history of stomach ulcers, gastritis, who presents to the ED today with nausea and vomiting as well as epigastric abdominal pain rated as mild and intermittent that began today. Patient denies any hematemesis. Denies any diarrhea. He is well known to this ED for similar symptoms. Review of Systems Review of Systems Constitutional: Denies fever or chills [] Eyes: Denies change in visual acuity, redness, or eye pain [] HENT: Denies nasal congestion or sore throat [] Respiratory: Denies cough or shortness of breath [] Cardiovascular: No additional information not addressed in HPI [] GI: Reports epigastric abdominal pain with nausea and vomiting, denies bloody stools or diarrhea [] : Denies dysuria or hematuria [] Musculoskeletal: Denies back pain or joint pain [] Integument: Denies rash or skin lesions [] Neurologic: Denies headache, focal weakness or sensory changes [] All other systems were reviewed and found to be within normal limits, except as documented in this note. Current Medications Current Medications Current Medications Medications (Trade) Dose Ordered Sig/Jose Miguel Start Time Stop Time Status Last Admin Dose Admin Dicyclomine HCl (Bentyl) 10 mg 1X ONCE 04/04/19 20:30 04/04/19 20:31 Famotidine (Pepcid Vial) 20 mg 1X ONCE 04/04/19 18:15 04/04/19 18:16 DC 04/04/19 18:16 20 MG Ketorolac Tromethamine (Toradol 30mg Vial) 30 mg 1X ONCE 04/04/19 18:15 04/04/19 18:16 DC 04/04/19 18:16 30 MG Multi-Ingredient Mouthwash/Gargle (Gi Cocktail) 20 ml 1X ONCE 04/04/19 18:15 04/04/19 18:16 DC 04/04/19 18:15 20 ML Potassium Chloride (Klor-Con) 40 meq 1X ONCE 04/04/19 19:15 04/04/19 19:16 DC 04/04/19 19:13 40 MEQ Prochlorperazine Edisylate (Compazine) 10 mg 1X ONCE 04/04/19 18:15 04/04/19 18:16 DC 04/04/19 18:16 10 MG Sodium Chloride 1,000 ml @ 1,000 mls/hr 1X ONCE 04/04/19 18:15 04/04/19 19:14 DC 04/04/19 18:16 1,000 MLS/HR Allergies Allergies Allergies Coded Allergies Type Severity Reaction Last Updated Verified No Known Drug Allergies 05/03/18 No Physical Exam Physical Exam Constitutional: Well developed, well nourished, no acute distress, non-toxic appearance. [] HENT: Normocephalic, atraumatic, bilateral external ears normal, oropharynx mo ist, no oral exudates, nose normal. [] Eyes: PERRLA, EOMI, conjunctiva normal, no discharge. [] Neck: Normal range of motion, no tenderness, supple, no stridor. [] Cardiovascular:Heart rate regular rhythm, no murmur [] Lungs & Thorax: Bilateral breath sounds clear to auscultation [] Abdomen: Bowel sounds normal, soft, no tenderness, no masses, no pulsatile masses. [] Skin: Warm, dry, no erythema, no rash. [] Back: No tenderness, no CVA tenderness. [] Extremities: No tenderness, no cyanosis, no clubbing, ROM intact, no edema. [] Neurologic: Alert and oriented X 3, normal motor function, normal sensory function, no focal deficits noted. [] Psychologic: Affect normal, judgement normal, mood normal. [] Current Patient Data Vital Signs Vital Signs Date Time Temp Pulse Resp B/P (MAP) Pulse Ox O2 Delivery O2 Flow Rate FiO2 04/04/19 19:55 98 17 156/70 (98) 98 Room Air 04/04/19 17:30 98.1 98.1 Lab Values Laboratory Tests Test 04/04/19 17:57 04/04/19 19:03 White Blood Count 11.5 x10^3/uL (4.0-11.0) H Red Blood Count 5.78 x10^6/uL (4.30-5.70) H Hemoglobin 16.1 g/dL (13.0-17.5) Hematocrit 47.5 % (39.0-53.0) Mean Corpuscular Volume 82 fL (79-100) Mean Corpuscular Hemoglobin 28 pg (25-35) Mean Corpuscular Hemoglobin Concent 34 g/dL (31-37) Red Cell Distribution Width 14.2 % (11.5-14.5) Platelet Count 324 x10^3/uL (140-400) Neutrophils (%) (Auto) 71 % (31-73) Lymphocytes (%) (Auto) 20 % (24-48) L Monocytes (%) (Auto) 6 % (0-9) Eosinophils (%) (Auto) 2 % (0-3) Basophils (%) (Auto) 1 % (0-3) Neutrophils # (Auto) 8.1 x10^3/uL (1.8-7.7) H Lymphocytes # (Auto) 2.3 x10^3/uL (1.0-4.8) Monocytes # (Auto) 0.7 x10^3/uL (0.0-1.1) Eosinophils # (Auto) 0.3 x10^3/uL (0.0-0.7) Basophils # (Auto) 0.1 x10^3/uL (0.0-0.2) Sodium Level 140 mmol/L (136-145) Potassium Level 3.2 mmol/L (3.5-5.1) L Chloride Level 102 mmol/L (98-107) Carbon Dioxide Level 23 mmol/L (21-32) Anion Gap 15 (6-14) H Blood Urea Nitrogen 8 mg/dL (8-26) Creatinine 1.3 mg/dL (0.7-1.3) Estimated GFR (Cockcroft-Gault) 82.8 BUN/Creatinine Ratio 6 (6-20) Glucose Level 116 mg/dL (70-99) H Calcium Level 10.2 mg/dL (8.5-10.1) H Total Bilirubin 0.6 mg/dL (0.2-1.0) Aspartate Amino Transferase (AST) 24 U/L (15-37) Alanine Aminotransferase (ALT) 31 U/L (16-63) Alkaline Phosphatase 68 U/L (46-116) Total Protein 7.7 g/dL (6.4-8.2) Albumin 4.1 g/dL (3.4-5.0) Albumin/Globulin Ratio 1.1 (1.0-1.7) Lipase 53 U/L (73-393) L Ethyl Alcohol Level < 10 mg/dL (0-10) Urine Collection Type Unknown Urine Color Yellow Urine Clarity Cloudy Urine pH 8.5 Urine Specific [place] 1.015 Urine Protein 100 mg/dL (NEG-TRACE) Urine Glucose (UA) Negative mg/dL (NEG) Urine Ketones (Stick) 15 mg/dL (NEG) Urine Blood Negative (NEG) Urine Nitrite Negative (NEG) Urine Bilirubin Negative (NEG) Urine Urobilinogen Dipstick 1.0 mg/dL (0.2 mg/dL) Urine Leukocyte Esterase Negative (NEG) Urine RBC Occ /HPF (0-2) Urine WBC Occ /HPF (0-4) Urine Bacteria 0 /HPF (0-FEW) Urine Mucus Mod /LPF Urine Opiates Screen Neg (NEG) Urine Methadone Screen Neg (NEG) Urine Barbiturates Neg (NEG) Urine Phencyclidine Screen Neg (NEG) Urine Amphetamine/Methamphetamine Neg (NEG) Urine Benzodiazepines Screen Neg (NEG) Urine Cocaine Screen Neg (NEG) Urine Cannabinoids Screen Pos (NEG) Urine Ethyl Alcohol Neg (NEG) Laboratory Tests 04/04/19 17:57 Laboratory Tests 04/04/19 17:57 EKG EKG [] Radiology/Procedures Radiology/Procedures [] Course & Med Decision Making Course & Med Decision Making Pertinent Labs and Imaging studies reviewed. (See chart for details) This is a 23-year-old male patient well known to this ED for chronic gastritis and stomach ulcers presenting to the ED today with the same. Labs are negative for any acute findings. Patient was discharged to home. Provided GI for follow- up. Symptoms were controlled in the ED. Dragon Disclaimer Dragon Disclaimer This electronic medical record was generated, in whole or in part, using a voice recognition dictation system. Departure Departure Impression: Primary Impression: Gastritis Disposition: HOME, SELF-CARE Condition: STABLE Referrals: NO PCP (PCP) CLAUDETTE ZEE MD follow up in one week Patient Instructions: Gastritis, Adult, Bali-[id number] Additional Instructions: You were evaluated in the Ed for gastritis, we provided you a GI specialist, follow-up with them in the next 1 week. Scripts Omeprazole (OMEPRAZOLE) 20 Mg Capsule.dr 1 CAP PO DAILY, #15 CAP 5 Refills Prov: MUTUNGA,CEAZR PIN MACHINE OPERATOR 04/04/19 Prochlorperazine Maleate (Compazine) 10 Mg Tablet 1 TAB PO Q6HRS for 7 Days, #15 TAB 0 Refills Prov: CEZAR QUIROZ APRN 04/04/19 Dicyclomine Hcl (DICYCLOMINE HCL) 20 Mg Tablet 1 TAB PO TID, #30 TAB 1 Refill Prov: CEZAR QUIROZ APRN 04/04/19 Problem Qualifiers Primary Impression: Gastritis Gastritis type: unspecified gastritis Chronicity: chronic Gastritis bleeding: without bleeding Qualified Codes: K29.50 - Unspecified chronic gastritis without bleeding CEZAR QUIROZ APRN Apr 04, 2019 19:32
[2019-04-04 19:35] LABS: AMPHETAMINE/METHAMPHETAMINE NEG (NEG); BARBITURATES NEG (NEG); BENZODIAZEPINES NEG (NEG); CANNABINOIDS POS (NEG); COCAINE NEG (NEG); METHADONE NEG (NEG); OPIATES NEG (NEG); PHENCYCLIDINE NEG (NEG)
[2019-04-04] MEDS ORDERED: OMEP20CA10 PO (20:24)
[2019-04-04] MEDS ORDERED: DICY20TA3 PO (20:24)
[2019-04-04] MEDS ORDERED: PROC10TA57 PO (20:24)
[2019-04-04 20:25] VITALS: BP 149/70
[2019-04-04] MEDS ORDERED: DICYCLOMINE 20 MG/2 ML AMPUL. IM ONE (20:30)
== END 2019-04-04 20:39 | disposition home or self-care (01) ==
LOC: ER 16:58
DX: K29.70 Gastritis, unspecified, without bleeding (principal)
CPT/HCPCS: 36415; 80053; 80307; 81001; 83690; 85025; 96361; 96372; 96374; 96375; 99284; G0480; J0500; J0780; J1885; J3490; J7030

== ENCOUNTER 2019-05-09 18:43 | Emergency (ER) | payer SELFPAY ==
[~2019-05-09 18:43] MED LIST changes: +DICY20TA3 PO; +OMEP20CA10 PO; +PROC10TA57 PO
== END 2019-05-09 19:17 | disposition left against medical advice (07) ==
LOC: ER 18:43
DX: R11.2 Nausea with vomiting, unspecified (principal); R19.7 Diarrhea, unspecified; Z53.21 Procedure and treatment not carried out due to patient leaving prior to being seen by health care provider

== ENCOUNTER 2020-05-13 14:20 | Emergency (ER) | payer SELFPAY ==
[~2020-05-13] VITALS: Ht 172.7 cm; Wt 72.0 kg
[~2020-05-13 14:20] MED LIST changes: -OMEP20CA10 PO; +OMEP20CA16 PO
[2020-05-13 14:22] VITALS: BP 163/94
[2020-05-13] MEDS ORDERED: METOCLOPRAMIDE HCL 10 MG/2 ML VIAL. IVP ONE (14:30)
[2020-05-13] MEDS ORDERED: IV NORMAL SALINE 1000ML BAG 1,000 ML IV ONE (14:30)
--- NOTE | 2020-05-13 14:32 | PHYS DOC ---
Past Medical History Past Medical History: Other Additional Past Medical Histor: Gastritis, stomach Ulcer Past Surgical History: No Surgical History Smoking Status: Never Smoker Alcohol Use: None Drug Use: Marijuana General Adult EDM: Chief Complaint: ABDOMINAL PAIN HPI: HPI: Patient is a 24 year old with a history of chronic, recurrent abdominal pain presents with mid abdominal pain that began last night. The pain is currently 7 out of 10 and described as cramping stabbing and nonradiating. Pain is worse with palpation and eating and better with rest. Patient states pain is similar to multiple episodes in the past. Patient denies any fevers, chills, cough, s hortness of breath or diarrhea. Patient says he took his medicines believe his Bentyl at home 3 times without relief. Review of Systems: Review of Systems: Constitutional: Denies fever or chills. [] Eyes: Denies change in visual acuity. [] HENT: Denies nasal congestion or sore throat. [] Respiratory: Denies cough or shortness of breath. [] Cardiovascular: Denies chest pain or edema. [] GI: Complains abdominal pain, nausea, vomiting but no diarrhea : Denies dysuria. [] Musculoskeletal: Denies back pain or joint pain. [] Integument: Denies rash. [] Neurologic: Denies headache, focal weakness or sensory changes. [] Endocrine: Denies polyuria or polydipsia. [] Lymphatic: Denies swollen glands. [] Psychiatric: Denies depression or anxiety. [] Heart Score: Risk Factors: Risk Factors: DM, Current or recent (<one month) smoker, HTN, HLP, family history of CAD, obesity. Risk Scores: Score 0 - 3: 2.5% MACE over next 6 weeks - Discharge Home Score 4 - 6: 20.3% MACE over next 6 weeks - Admit for Clinical Observation Score 7 - 10: 72.7% MACE over next 6 weeks - Early Invasive Strategies Current Medications: Current Medications Medications (Trade) Dose Ordered Sig/Jose Miguel Start Time Stop Time Status Last Admin Dose Admin Metoclopramide HCl (Reglan Vial) 10 mg 1X ONCE 05/13/20 14:30 05/13/20 14:31 UNV Sodium Chloride 1,000 ml @ 1,000 mls/hr 1X ONCE 05/13/20 14:30 05/13/20 15:29 UNV Allergies: Allergies: Allergies Coded Allergies Type Severity Reaction Last Updated Verified No Known Drug Allergies 05/03/18 No Physical Exam: PE: Constitutional: Well developed, well nourished, no acute distress, non-toxic appearance. [] HENT: Normocephalic, atraumatic, bilateral external ears normal, no trismus, nose normal. [] Eyes: PERRLA, EOMI, conjunctiva normal, no discharge. [] Neck: Normal range of motion, no tenderness, supple, no stridor. [] Cardiovascular:Heart rate regular rhythm, peripheral pulses are intact cap refill is brisk Lungs & Thorax: Bilateral breath sounds clear, no respiratory distress Abdomen: soft, mild mid abdominal tenderness without guarding or rebound no masses, no pulsatile masses. [] Skin: Warm, dry, no erythema, no rash. [] Back: No tenderness, no CVA tenderness. [] Extremities: No tenderness, no cyanosis, no clubbing, ROM intact, no edema. [] Neurologic: Alert and oriented X 3, normal motor function, normal sensory function, no focal deficits noted. [] Psychologic: Affect normal, judgement normal, mood normal. [] Current Patient Data: Labs: Laboratory Tests Test 05/13/20 14:46 05/13/20 15:35 White Blood Count 7.9 x10^3/uL Red Blood Count 5.33 x10^6/uL Hemoglobin 14.8 g/dL Hematocrit 43.3 % Mean Corpuscular Volume 81 fL Mean Corpuscular Hemoglobin 28 pg Mean Corpuscular Hemoglobin Concent 34 g/dL Red Cell Distribution Width 14.7 % Platelet Count 297 x10^3/uL Neutrophils (%) (Auto) 59 % Lymphocytes (%) (Auto) 27 % Monocytes (%) (Auto) 7 % Eosinophils (%) (Auto) 6 % Basophils (%) (Auto) 1 % Neutrophils # (Auto) 4.6 x10^3/uL Lymphocytes # (Auto) 2.1 x10^3/uL Monocytes # (Auto) 0.6 x10^3/uL Eosinophils # (Auto) 0.5 x10^3/uL Basophils # (Auto) 0.1 x10^3/uL Urine Collection Type Unknown Urine Color Yellow Urine Clarity Clear Urine pH 7.5 Urine Specific [place] 1.020 Urine Protein Negative mg/dL Urine Glucose (UA) Negative mg/dL Urine Ketones (Stick) 15 mg/dL Urine Blood Negative Urine Nitrite Negative Urine Bilirubin Negative Urine Urobilinogen Dipstick 1.0 mg/dL Urine Leukocyte Esterase Negative Urine RBC 0 /HPF Urine WBC Occ /HPF Urine Bacteria 0 /HPF Current Medications Medications (Trade) Dose Ordered Sig/Jose Miguel Route PRN Reason Start Time Stop Time Status Last Admin Dose Admin Sodium Chloride 1,000 ml @ 1,000 mls/hr 1X ONCE IV 05/13/20 14:30 05/13/20 15:29 DC 05/13/20 14:59 Metoclopramide HCl (Reglan Vial) 10 mg 1X ONCE IVP 05/13/20 14:30 05/13/20 14:40 DC 05/13/20 15:02 Ondansetron HCl (Zofran) 4 mg 1X ONCE IVP 05/13/20 15:45 05/13/20 15:49 DC Dicyclomine HCl (Bentyl) 20 mg 1X ONCE IM 05/13/20 15:45 05/13/20 15:49 DC Vital Signs: Vital Signs Date Time Temp Pulse Resp B/P (MAP) Pulse Ox O2 Delivery O2 Flow Rate FiO2 05/13/20 14:22 98.5 73 20 163/94 (117) 100 Room Air 98.5 EKG: EK:45 PM: Charge nurse came to inform you that patient was on the floor when she told him to get up he became upset. She informed that he is signing out AMA. [] Radiology/Procedures: Radiology/Procedures: [] Course & Med Decision Making: Course & Med Decision Making Pertinent Labs and Imaging studies reviewed. (See chart for details) [] Dragon Disclaimer: Dragon Disclaimer: This electronic medical record was generated, in whole or in part, using a voice recognition dictation system. Departure Departure Impression: Primary Impression: Abdominal pain Disposition: 07 AMA/ELOPED/LWBS Condition: STABLE Referrals: NO PCP (PCP) CLAUDETTE HILL MD May 13, 2020 14:32
[2020-05-13 14:55] LABS: BASO # 0.1 x10^3/uL (0.0-0.2); BASO % 1 % (0-3); EOS # 0.5 x10^3/uL (0.0-0.7); EOS % 6 % (0-3); HEMATOCRIT 43.3 % (39.0-53.0); HEMOGLOBIN 14.8 g/dL (13.0-17.5); LYMPH # 2.1 x10^3/uL (1.0-4.8); LYMPH % 27 % (24-48); MEAN CORPUSCULAR HEMOGLOBIN 28 pg (25-35); MEAN CORPUSCULAR HGB CONC 34 g/dL (31-37); MEAN CORPUSCULAR VOLUME 81 fL (79-100); MONO # 0.6 x10^3/uL (0.0-1.1); MONO % 7 % (0-9); NEUT # 4.6 x10^3/uL (1.8-7.7); NEUT % 59 % (31-73); PLATELET COUNT 297 x10^3/uL (140-400); RED BLOOD COUNT 5.33 x10^6/uL (4.30-5.70); RED CELL DISTRIBUTION WIDTH 14.7 % (11.5-14.5); WHITE BLOOD COUNT 7.9 x10^3/uL (4.0-11.0)
[2020-05-13] MEDS ORDERED: DICYCLOMINE 20 MG/2 ML VIAL. IM ONE (15:45)
[2020-05-13] MEDS ORDERED: ONDANSETRON PF 4 MG/2 ML VIAL. IVP ONE (15:45)
[2020-05-13 15:47] LABS: BILIRUBIN,URINE NEGATIVE (NEG); CLARITY,URINE CLEAR; COLOR,URINE YELLOW; NITRITE,URINE NEGATIVE (NEG); PH,URINE 7.5 (<5.0-8.0); PROTEIN,URINE NEGATIVE (NEG-TRACE)
[2020-05-13 15:53] LABS: BACTERIA,URINE 0 /HPF (0-FEW); RBC,URINE 0 /HPF (0-2); WBC,URINE OCC /HPF (0-4)
== END 2020-05-13 15:52 | disposition left against medical advice (07) ==
LOC: ER 14:20
DX: R10.30 Lower abdominal pain, unspecified (principal); R11.2 Nausea with vomiting, unspecified; F12.90 Cannabis use, unspecified, uncomplicated
CPT/HCPCS: 36415; 81001; 85025; 96361; 96374; 99283; J2765; J7030

== ENCOUNTER 2020-11-13 21:05 | Emergency (ER) | payer SELFPAY ==
[~2020-11-13] VITALS: Ht 180.3 cm; Wt 67.1 kg
[2020-11-13 21:57] LABS: BASO # 0.1 x10^3/uL (0.0-0.2); BASO % 1 % (0-3); EOS # 0.3 x10^3/uL (0.0-0.7); EOS % 5 % (0-3); HEMATOCRIT 40.8 % (39.0-53.0); HEMOGLOBIN 14.1 g/dL (13.0-17.5); LYMPH # 2.1 x10^3/uL (1.0-4.8); LYMPH % 33 % (24-48); MEAN CORPUSCULAR HEMOGLOBIN 28 pg (25-35); MEAN CORPUSCULAR HGB CONC 35 g/dL (31-37); MEAN CORPUSCULAR VOLUME 82 fL (79-100); MONO # 0.5 x10^3/uL (0.0-1.1); MONO % 8 % (0-9); NEUT # 3.5 x10^3/uL (1.8-7.7); NEUT % 54 % (31-73); PLATELET COUNT 266 x10^3/uL (140-400); RED BLOOD COUNT 4.96 x10^6/uL (4.30-5.70); RED CELL DISTRIBUTION WIDTH 14.1 % (11.5-14.5); WHITE BLOOD COUNT 6.5 x10^3/uL (4.0-11.0)
[2020-11-13] MEDS ORDERED: IV NORMAL SALINE 1000ML BAG 1,000 ML IV ONE ×2 (22:00→22:30)
--- NOTE | 2020-11-13 22:02 | PHYS DOC ---
Past Medical History Past Medical History: Anxiety, Other Additional Past Medical Histor: Gastritis, stomach Ulcer Past Surgical History: No Surgical History Smoking Status: Never Smoker Alcohol Use: None Drug Use: Marijuana General Adult EDM: Chief Complaint: ALTERED MENTAL STATUS HPI: HPI: Patient is a 25 year old male past medical history of chronic abdominal pain nausea and vomiting presents after being found unconscious on the front porch. Patient arrived via EMS he states that he has chronic abdominal pain associated with nausea and vomiting. Patient states this evening he took Zofran for nausea and to trazodone and to gabapentin for his abdominal pain. Patient states he took these medications to try to control his abdominal pain and because he wanted to sleep. Patient denies any attempts of harming himself. In addition to nausea and vomiting patient states last night he started to have diarrhea. Review of Systems: Review of Systems: Constitutional: Denies fever or chills. [] Eyes: Denies change in visual acuity. [] HENT: Denies nasal congestion or sore throat. [] Respiratory: Denies cough or shortness of breath. [] Cardiovascular: Denies chest pain or edema. [] GI: Positive abdominal pain, Positive nausea, Positive vomiting, Positive diarrhea. [] : Denies dysuria. [] Musculoskeletal: Denies back pain or joint pain. [] Integument: Denies rash. [] Neurologic: Denies headache, focal weakness or sensory changes. [] Endocrine: Denies polyuria or polydipsia. [] Lymphatic: Denies swollen glands. [] Psychiatric: Denies depression or anxiety. [] Heart Score: C/O Chest Pain: N/A Risk Factors: Risk Factors: DM, Current or recent (<one month) smoker, HTN, HLP, family history of CAD, obesity. Risk Scores: Score 0 - 3: 2.5% MACE over next 6 weeks - Discharge Home Score 4 - 6: 20.3% MACE over next 6 weeks - Admit for Clinical Observation Score 7 - 10: 72.7% MACE over next 6 weeks - Early Invasive Strategies Current Medications: Current Medications Medications (Trade) Dose Ordered Sig/Jose Miguel Start Time Stop Time Status Last Admin Dose Admin Sodium Chloride 1,000 ml @ 1,000 mls/hr 1X ONCE 11/13/20 22:00 11/13/20 22:59 Allergies: Allergies: Allergies Coded Allergies Type Severity Reaction Last Updated Verified No Known Drug Allergies 05/03/18 No Physical Exam: PE: General: alert, no acute distress. Skin: warm, dry and intact. Head:: Normocephalic, atraumatic. Neck: Trachea midline. Eyes: EOMI, Normal conjunctiva, No drainage CARDIOVASCULAR: Regular rate and rhythm RESPIRATORY: No respiratory distress Back: Full range of motion. MUSCULOSKELETAL: Full range of motion of bilateral upper and lower extremities. GASTROINTESTINAL: Abdomen soft without rebound or guarding. NEUROLOGICAL: Alert and noted to person, place and time. No neurological deficits observed Psychiatric: Cooperative. Normal judgment Current Patient Data: Labs: Laboratory Tests Test 11/13/20 21:45 White Blood Count 6.5 x10^3/uL (4.0-11.0) Red Blood Count 4.96 x10^6/uL (4.30-5.70) Hemoglobin 14.1 g/dL (13.0-17.5) Hematocrit 40.8 % (39.0-53.0) Mean Corpuscular Volume 82 fL (79-100) Mean Corpuscular Hemoglobin 28 pg (25-35) Mean Corpuscular Hemoglobin Concent 35 g/dL (31-37) Red Cell Distribution Width 14.1 % (11.5-14.5) Platelet Count 266 x10^3/uL (140-400) Neutrophils (%) (Auto) 54 % (31-73) Lymphocytes (%) (Auto) 33 % (24-48) Monocytes (%) (Auto) 8 % (0-9) Eosinophils (%) (Auto) 5 % (0-3) H Basophils (%) (Auto) 1 % (0-3) Neutrophils # (Auto) 3.5 x10^3/uL (1.8-7.7) Lymphocytes # (Auto) 2.1 x10^3/uL (1.0-4.8) Monocytes # (Auto) 0.5 x10^3/uL (0.0-1.1) Eosinophils # (Auto) 0.3 x10^3/uL (0.0-0.7) Basophils # (Auto) 0.1 x10^3/uL (0.0-0.2) Laboratory Tests 11/13/20 21:45 Vital Signs: Vital Signs Date Time Temp Pulse Resp B/P (MAP) Pulse Ox O2 Delivery O2 Flow Rate FiO2 11/13/20 21:05 98.3 62 18 174/96 (122) 98 Room Air 98.3 EKG: EKG: [] EKG performed at 2146 hrs. heart rate [address] changes V3 V4 V5 suspect benign early polarization Radiology/Procedures: Radiology/Procedures: [] Course & Med Decision Making: Course & Med Decision Making Pertinent Labs and Imaging studies reviewed. (See chart for details) [] Patient was evaluated for chief complaint. Work-up consisted of laboratory analysis. Results reviewed and discussed with patient. Treatment included IV fluids Zofran and Bentyl. Patient was given PO bentyl--- nursing states he made himself vomit it up. Bentyl IM was ordered-- when nursing went to administer shot patient had left ER. Becki Disclaimer: Becki Disclaimer: This electronic medical record was generated, in whole or in part, using a voice recognition dictation system. Departure Departure Impression: Primary Impression: Abdominal pain Additional Impression: Nausea & vomiting Disposition: 01 HOME / SELF CARE / HOMELESS Condition: STABLE Referrals: NO PCP (PCP) Patient Instructions: Abdominal Migraine, Nausea and Vomiting Scripts Dicyclomine Hcl (DICYCLOMINE HCL) 10 Mg Capsule 1 CAP PO TID, #90 CAP 11 Refills Prov: JHONNY ALMANZAR DO 11/13/20 JHONNY ALMANZAR DO November 13, 2020 22:02
[2020-11-13 22:04] LABS: CALCIUM 8.9 mg/dL (8.5-10.1); CREATININE 1.4 mg/dL (0.7-1.3); GFR 74.7; POTASSIUM 3.4 mmol/L (3.5-5.1)
[2020-11-13 22:08] LABS: ALBUMIN 4.2 g/dL (3.4-5.0); ALBUMIN/GLOBULIN RATIO 1.4 (1.0-1.7); TOTAL BILIRUBIN 0.5 mg/dL (0.2-1.0); TOTAL PROTEIN 7.3 g/dL (6.4-8.2)
[2020-11-13] MEDS ORDERED: ONDANSETRON PF 4 MG/2 ML VIAL. IVP ONE (22:30)
[2020-11-13 22:45] VITALS: BP 172/98
[2020-11-13] MEDS ORDERED: DICY10CA3 PO (22:59)
[2020-11-13] MEDS ORDERED: DICYCLOMINE HCL 10 MG CAPSULE ONE (23:12)
[2020-11-13] MEDS ORDERED: DICYCLOMINE HCL 10 MG CAPSULE PO ONE (23:30)
--- NOTE | 2020-11-13 23:36 | EKG ---
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
[2020-11-14] MEDS ORDERED: DICYCLOMINE 20 MG/2 ML VIAL. IM ONE (00:30)
== END 2020-11-14 00:05 | disposition home or self-care (01) ==
LOC: ER 21:05
DX: G89.29 Other chronic pain (principal); R10.9 Unspecified abdominal pain; R11.2 Nausea with vomiting, unspecified; R19.7 Diarrhea, unspecified
CPT/HCPCS: 36415; 80053; 83690; 84484; 85025; 93005; 96361; 96374; 99284; J2405; J7030; 99285-25

== ENCOUNTER 2021-06-11 05:43 | Emergency (ER) | payer SELFPAY ==
[~2021-06-11] VITALS: Ht 172.7 cm; Wt 72.7 kg
[~2021-06-11 05:43] MED LIST changes: +DICY10CA3 PO; +DICY20TA PO; -DICY20TA3 PO
--- NOTE | 2021-06-11 05:59 | PHYS DOC ---
Past Medical History Past Medical History: Anxiety, Other Additional Past Medical Histor: Gastritis, stomach Ulcer Past Surgical History: No Surgical History Smoking Status: Never Smoker Alcohol Use: None Drug Use: Marijuana General Adult EDM: Chief Complaint: ABDOMINAL PAIN HPI: HPI: Patient is a 25 year old male who presents with epigastric abdominal pain with nausea, vomiting and diarrhea. Symptoms began last night have progressed through this morning. He denies hematemesis, melena or hematochezia. He reports a burning sensation up into his chest. He denies dyspnea. He denies urinary symptoms. Denies back or flank pain. He denies any previous abdominal surgeries. He reports that he has had similar symptoms many times over the years. He had an endoscopy by GI, which reportedly showed nothing acute. He has been taking [id number] Pepcid intermittently. He has frequented multiple ERs for various abdominal pain issues, and he occasionally takes Bentyl and Zofran. He does not currently have a GI physician or primary care ramirez medina. He denies use of alcohol or illicit drugs. He does report that he thinks he has an ulcer, though it does not sound like this has been definitively diagnosed. Review of Systems: Review of Systems: Constitutional: Denies fever or chills. [] Eyes: Denies change in visual acuity. [] HENT: Denies nasal congestion or sore throat. [] Respiratory: Denies cough or shortness of breath. [] Cardiovascular: Chest pain/burning. No peripheral edema, no dizziness or syncope. GI: Epigastric abdominal pain, nausea, vomiting, diarrhea. Denies melena, hematochezia or hematemesis : Denies urinary symptoms Musculoskeletal: Denies back pain or joint pain. [] Integument: Denies rash. [] Neurologic: Denies headache, focal weakness or sensory changes. [] ] Psychiatric: Anxiety Heart Score: C/O Chest Pain: Yes HEART Score for Chest Pain: HEART Score for Chest Pain Response (Comments) Value History Slighlty/Non-Suspicious 0 ECG Nonspecific Repolarizatio 1 Age < 45 0 Risk Factors No Risk Factors 0 Troponin >1-<3x Normal Limit 1 Total 2 Risk Factors: Risk Factors: DM, Current or recent (<one month) smoker, HTN, HLP, family history of CAD, obesity. Risk Scores: Score 0 - 3: 2.5% MACE over next 6 weeks - Discharge Home Score 4 - 6: 20.3% MACE over next 6 weeks - Admit for Clinical Observation Score 7 - 10: 72.7% MACE over next 6 weeks - Early Invasive Strategies Allergies: Allergies: Allergies Coded Allergies Type Severity Reaction Last Updated Verified No Known Drug Allergies 05/03/18 No Physical Exam: PE: Constitutional: Well developed, well nourished, no acute distress, non-toxic appearance. He is rolling around on the ED gurney, appears uncomfortable. He is not acutely ill-appearing. HENT: Normocephalic, atraumatic, oropharynx is patent and clear, mucous membranes are moist. Eyes: Sclera are clear and anicteric Neck: Normal range of motion, no tenderness, supple, no stridor. [] Cardiovascular:Heart rate regular rhythm, +2 radial and +2 posterior tibial pulses bilaterally Lungs & Thorax: Bilateral breath sounds clear to auscultation, no rales, rhonchi or wheezes Abdomen: Diminished soft, nondistended, normal bowel sounds, diffuse/nonfocal tenderness of the entire abdomen and epigastrium. Mild inconsistent voluntary guarding, no rebound tenderness. No palpable masses organomegaly. No CVA tenderness. No flank or abdominal ecchymoses. No palpable pulsatile mass noted . Skin: Warm, dry, no erythema, no rash. No jaundice. Back: No tenderness, no CVA tenderness. [] Extremities: No tenderness, no cyanosis, no clubbing, ROM intact, no edema. No calf tenderness Neurologic: Alert and oriented X 3, normal motor function, normal sensory function, no focal deficits noted. [] Psychologic: Anxious [] EKG: EKG: EKG is interpreted at 0555 Rhythm is sinus Rate is 79 bpm Early repolarization changes, hyperacute T waves V1-V3 No ST depression Radiology/Procedures: Radiology/Procedures: IMAGING REPORT Signed PATIENT: TERENCE FORD CACCOUNT: [id number] : 1995 LOCATION: ER AGE: 25 SEX: M EXAM STATUS: PRE ER ORD. PHYSICIAN: DEZ EMERY DO REASON: abdominal pain, n/v/diarrhea PROCEDURE: CT ABD PELV W/ IV CONTRST ONLY Exam Date: 06/11/2021 6:[address] ABDOMEN+PELVIS W Indication: Reason: abdominal pain, n/v/diarrhea / Spl. Instructions: IV omni 300 75 mls / History: . TECHNIQUE: CT examination of the abdomen and pelvis was performed following the administration of nonionic intravenous contrast. One or more of the following dose reduction techniques were utilized: *Automated exposure control (AEC) *Adjustment of mA and/or kV according to patient size *Use of iterative reconstruction technique *CT scan done according to ALARA, or ALARA/IMAGE GENTLY FINDINGS: The visualized lung bases are clear. The liver, gallbladder, spleen, pancreas, adrenal glands and kidneys are normal. Urinary bladder is normal in appearance. There is no bowel obstruction or inflammation. The appendix is normal. No significant atherosclerotic calcifications are seen. No lymphadenopathy or ascites is seen. Osseous structures are intact. IMPRESSION: No evidence of acute intra-abdominal pathology. Electronically signed by: Norma Spence MD (06/11/2021 7:42 AM) [id number] DICTATED and SIGNED BY: NORMA SPENCE MD DATE: 06/11/21 [id number] Course & Med Decision Making: Course & Med Decision Making Pertinent Labs and Imaging studies reviewed. (See chart for details) The patient is given IV fluids, IV Zofran, IV morphine, IV Ativan. He rested for several hours in the ER, when he awoke he is able to tolerate p.o. fluids without difficulty. Abdominal exam is unremarkable, nonsurgical. He reports feeling much better. He denies any chest pain or abdominal pain at present. Troponins were trended serially, his chest pain is atypical, no acute ischemia on EKG, troponin is trending downward, no indication for ACS, no indication for admission. CT of the abdomen and pelvis is unremarkable for acute surgical or life-threatening pathology. I do recommend he see a primary care physician as well as outpatient GI services. He will be prescribed a small amount of pain medicine, antiemetics as well as PPI. He feels comfortable with the plan of care. Strict return precautions are given. He verbalizes understanding. Becki Disclaimer: Becki Disclaimer: This electronic medical record was generated, in whole or in part, using a voice recognition dictation system. Departure Departure Impression: Primary Impression: Generalized abdominal pain Additional Impression: Nausea and vomiting Disposition: HOME / SELF CARE / HOMELESS Condition: STABLE Referrals: NO PCP (PCP) Patient Instructions: Gastritis, Adult Additional Instructions: Take the medicines as needed/as directed. Eat a bland diet, avoid spicy or greasy or very salty foods. Drink plenty of clear fluids. Return for vomiting blood, dehydration, more severe pain, fever 100.4 or for any other concerns. Follow-up with your primary care physician Scripts Omeprazole (OMEPRAZOLE) 20 Mg Capsule.dr 1 CAP PO DAILY, #30 CAP 0 Refills Prov: DEZ EMERY DO 06/11/21 Hydrocodone Bit/Acetaminophen (HYDROCODONE-APAP 5-325 ) 1 Tab Tablet 1 TAB PO PRN Q6HRS PRN for PAIN, #12 TAB 0 Refills Prov: DEZ EMERY DO 06/11/21 Ondansetron Hcl (ZOFRAN) 4 Mg Tablet 4 MG PO PRN TID PRN for VOMITING, #30 TAB nausea/vomiting Prov: DEZ EMERY DO 06/11/21 DEZ EMERY DO Jun 11, 2021 05:59
[2021-06-11 06:38] LABS: BASO % 0 % (0-3); EOS # 0.3 x10^3/uL (0.0-0.7); EOS % 3 % (0-3); HEMATOCRIT 41.9 % (39.0-53.0); LYMPH # 0.6 x10^3/uL (1.0-4.8); LYMPH % 6 % (24-48); MEAN CORPUSCULAR HEMOGLOBIN 28 pg (25-35); MEAN CORPUSCULAR HGB CONC 34 g/dL (31-37); MEAN CORPUSCULAR VOLUME 85 fL (79-100); MONO # 0.5 x10^3/uL (0.0-1.1); MONO % 5 % (0-9); NEUT # 7.5 x10^3/uL (1.8-7.7); NEUT % 85 % (31-73); PLATELET COUNT 221 x10^3/uL (140-400); RED BLOOD COUNT 4.94 x10^6/uL (4.30-5.70); RED CELL DISTRIBUTION WIDTH 14.1 % (11.5-14.5); WHITE BLOOD COUNT 8.9 x10^3/uL (4.0-11.0)
[2021-06-11 06:48] LABS: CALCIUM 8.3 mg/dL (8.5-10.1); CREATININE 0.9 mg/dL (0.7-1.3); GFR 124.4; POTASSIUM 3.9 mmol/L (3.5-5.1)
[2021-06-11 06:58] LABS: ALBUMIN 3.4 g/dL (3.4-5.0); MAGNESIUM 1.8 mg/dL (1.8-2.4); TOTAL BILIRUBIN 0.4 mg/dL (0.2-1.0); TOTAL PROTEIN 6.9 g/dL (6.4-8.2)
[2021-06-11] MEDS ORDERED: CONTRAST GIVEN. MC PRN (07:00)
[2021-06-11] MEDS ORDERED: MORPHINE SULFATE 4 MG/ML INJ. IVP ONE (07:00)
[2021-06-11] MEDS ORDERED: ONDANSETRON PF 4 MG/2 ML VIAL. IVP ONE (07:00)
[2021-06-11] MEDS ORDERED: IV NORMAL SALINE 1000ML BAG 1,000 ML IV ONE ×2 (07:00→08:15)
[2021-06-11] MEDS ORDERED: IOHEXOL 300 MG/ML 100ML VIAL. IV ONE (07:00)
--- NOTE | 2021-06-11 07:44 | RAD ---
Exam Date: 06/11/2021 6:[address] ABDOMEN+PELVIS W Indication: Reason: abdominal pain, n/v/diarrhea / Spl. Instructions: IV omni 300 75 mls / History: . TECHNIQUE: CT examination of the abdomen and pelvis was performed following the administration of no nionic intravenous contrast. One or more of the following dose reduction techniques were utilized: *Automated exposure control (AEC) *Adjustment of mA and/or kV according to patient size *Use of iterative reconstruction technique *CT scan done according to ALARA, or ALARA/IMAGE GENTLY FINDINGS: The visualized lung bases are clear. The liver, gallbladder, spleen, pancreas, adrenal glands and kidneys are normal. Urinary bladder is normal in appearance. There is no bowel obstruction or inflammation. The appendix is normal. No significant atherosclerotic calcifications are seen. No lymphadenopathy or ascites is seen. Osseous structures are intact. IMPRESSION: No evidence of acute intra-abdominal pathology. Electronically signed by: Elvis Spence MD (06/11/2021 7:42 AM) [id number]
[2021-06-11 11:03] LABS: BILIRUBIN,URINE NEGATIVE (NEG); CLARITY,URINE CLEAR; COLOR,URINE YELLOW; NITRITE,URINE NEGATIVE (NEG); PROTEIN,URINE NEGATIVE (NEG-TRACE); UROBILINOGEN,URINE 0.2 mg/dL (0.2 mg/dL)
[2021-06-11 11:17] LABS: BARBITURATES NEG (NEG); BENZODIAZEPINES NEG (NEG); CANNABINOIDS POS (NEG); COCAINE NEG (NEG); METHADONE NEG (NEG); OPIATES POS (NEG); PHENCYCLIDINE NEG (NEG)
[2021-06-11 11:18] LABS: AMPHETAMINE/METHAMPHETAMINE NEG (NEG)
[2021-06-11 11:39] LABS: BACTERIA,URINE 0 /HPF (0-FEW); RBC,URINE 0 /HPF (0-2)
[2021-06-11] MEDS ORDERED: HYDR-2761 PO (12:27)
[2021-06-11] MEDS ORDERED: OMEP20CA16 PO (12:27)
[2021-06-11] MEDS ORDERED: ONDA4TAB7 PO (12:27)
[2021-06-11 12:33] VITALS: BP 151/91
--- NOTE | 2021-06-13 03:36 | EKG ---
[facility] [address] [place] [address] Test Date: 2021-06-11 Test Time: 05:51:49 Pat Name: TERENCE BRIZUELA Department: Room: Gender: M Mat Linker: : 1995 Requested By: DEZ EMERY Order Number: [id number] Reading MD: Measurements Intervals [place] Rate: 79 P: 59 DC: 166 QRS: 67 QRSD: 84 T: 42 QT: 314 QTc: 361 Interpretive Statements SINUS ARRHYTHMIA ST & T ABNORMALITY, CONSIDER RECENT ANTERIOR MYOCARDIAL OR PERICARDIAL DAMAGE INFERIOR MYOCARDIAL OR PERICARDIAL DAMAGE ABNORMAL ECG RI6.01 No previous ECG available for comparison
== END 2021-06-11 12:34 | disposition home or self-care (01) ==
LOC: ER 05:43
DX: R10.84 Generalized abdominal pain (principal); R10.13 Epigastric pain; R11.2 Nausea with vomiting, unspecified; R19.7 Diarrhea, unspecified
CPT/HCPCS: 36415; 74177; 80053; 80307; 81001; 83690; 83735; 84484; 85025; 96361; 96374; 96375; 99285; J2060; J2270; J2405; J7030; Q9967; 93005